=== PATIENT | female | born 1970 | race American Indian/Alaskan Native ===

== ENCOUNTER 2022-06-07 16:42 | Inpatient (IN) | payer MEDICARE ==
[2022-06-08] MEDS: traZODone 50 MG TAB PO SCH ×2 (02:15→21:26)
[2022-06-08 06:55] LABS: Hematocrit 37.3 % (30.3-42.9); Hemoglobin 12.7 gm/dl (10.1-14.3); Mean Corpuscular HGB Conc 34 % (30-34); Mean Corpuscular Volume 91 fl (79-97); Platelet Count 254 K/mm3 (140-440); Red Blood Count 4.09 M/mm3 (3.65-5.03); Red Cell Distribution Width 14.5 % (13.2-15.2)
[2022-06-08 07:16] LABS: Alanine Aminotransferase 20 units/L (7-56); Albumin 3.8 g/dL (3.9-5); Blood Urea Nitrogen 10 mg/dL (7-17); Calcium 9.3 mg/dL (8.4-10.2); Chol/HDL Ratio 2.36 %; HDL Cholesterol 73 mg/dL (40-59); Hemolysis Index 3; LDL Cholesterol,Direct 92 mg/dL (50-130)
[2022-06-08 07:18] LABS: BUN/Creatinine Ratio 17
[2022-06-08 07:47] LABS: Total Cells Counted 100
[2022-06-08 07:50] LABS: Hypochromasia Few; Large Platelets Rare; Platelet Estimate Consistent w Auto
[2022-06-08 11:52] LABS: Mucus,Urine FEW /HPF
[2022-06-08 11:53] LABS: Color,Urine Straw (Yellow)
[2022-06-08 11:54] LABS: Bilirubin,Urine Negative (Negative); Blood,Urine Trace (Negative)
[2022-06-08 11:55] LABS: Protein,Urine <15 mg/dL mg/dL (Negative); Urobilinogen,Urine < 2.0 mg/dL (<2.0)
[2022-06-08] MEDS: NICOTINE 21 MG/24 HR PATCH TD SCH (17:43)
[2022-06-09] MEDS: NICOTINE 21 MG/24 HR PATCH TD SCH (09:28)
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
--- NOTE | 2022-06-09 14:32 | Consultation ---
History of Present Illness - Reason for Consult Consult date: 06/09/22 Medical consult and management Requesting physician: DANO MORAN - History of Present Illness 52-year-old female patient was admitted to [facility] facility with history of consistent with danger to self, severe anxiety and depression, hospitalist service was consulted for medical management Patient has history of breast cancer status post surgery and gastroesophageal reflux disease on GERD Patient also has history of vertigo, on meclizine This morning patient feels better in the day room No complaints, denies any chest pain or shortness of breath, denies any headache or dizziness, patient reports that she had right breast cancer status postsurgery Admitted for further evaluation management of danger to self with severe anxiety and depression Past History Past Medical History: GERD, other (Anxiety disorder. Depression, vertigo) Past Surgical History: Other (Right breast cancer status post right mastectomy) Social history: single, smoking Medications and Allergies Allergies Allergy/AdvReac Type Severity Reaction Status Date / Time No Known Allergies Allergy Unverified 06/07/22 18:05 Home Medications Medication Instructions Recorded Confirmed Last Taken Type Docusate Sodium [Colace CAP] 100 mg PO PRN 06/07/22 06/07/22 Unknown History Letrozole (Nf) [Femara (Nf)] 2.5 mg PO QDAY 06/07/22 06/07/22 Unknown History Meclizine [Antivert] 25 mg PO DAILY 06/07/22 06/07/22 Unknown History Venlafaxine [Effexor] 75 mg PO QHS 06/07/22 06/07/22 Unknown History Omeprazole 20 mg PO QAM 06/08/22 06/08/22 Unknown History Active Meds: Active Medications Nicotine (Nicotine 21 Mg/24 Hr Patch) 21 mg TD QDAY [facility] Last Admin: 06/09/22 09:28 Dose: 21 mg Trazodone HCl (Trazodone 50 Mg Tab) 50 mg PO QHS [facility] Last Admin: 06/08/22 21: Dose: 50 mg Review of Systems Constitutional: fatigue, weakness, no weight loss, no weight gain, no fever, no chills Ears, nose, mouth and throat: no nasal congestion, no nasal discharge Cardiovascular: no chest pain, no orthopnea, no palpitations Respiratory: no cough, no hemoptysis Gastrointestinal: no abdominal pain, no nausea, no vomiting, no diarrhea Genitourinary Female: no flank pain, no dysuria Musculoskeletal: myalgias, no arthritis Integumentary: no rash, no lesions Neurological: no tingling, no seizures, no syncope Psychiatric: anxiety, depression Endocrine: no cold intolerance, no heat intolerance, no polyphagia, no poly dipsia Hematologic/Lymphatic: no easy bruising, no easy bleeding Allergic/Immunologic: no urticaria, no allergic rhinitis Exam - Constitutional Vitals: Temp Pulse Resp BP Pulse Ox 98.4 F 71 18 130/90 98 06/08/22 19:35 06/08/22 22:00 06/08/22 22:00 06/08/22 22:00 06/08/22 22:00 General appearance: Present: no acute distress, well-nourished - EENT Eyes: Present: PERRL, EOM intact - Neck Neck: Present: supple, normal ROM - Respiratory Respiratory effort: normal Respiratory: bilateral: diminished, negative: rales, rhonchi, wheezing - Cardiovascular Rhythm: regular Heart Sounds: Present: S1 & S2 - Extremities Extremities: no ischemia, No edema - Abdominal General gastrointestinal: Present: soft, non-tender, non-distended, normal bowel sounds - Integumentary Integumentary: Present: clear, warm - Musculoskeletal Musculoskeletal: strength equal bilaterally, generalized weakness - Psychiatric Psychiatric: appropriate mood/affect, cooperative - Neurologic Neurologic: moves all extremities Results - Labs CBC & Chem 7: 06/08/22 06:36 06/08/22 06:36 Assessment and Plan -- Gastroesophageal reflux disease; Protonic and supportive care --History of vertigo; Fall precautions, meclizine as needed Physical therapy as indicated --Ongoing tobacco use; Smoking cessation counseling done Nicotine patch as needed -- Danger to self and severe anxiety and depression; Management per psych --History of breast cancer status postmastectomy Supportive care -DVT prophylaxis; SCDs while resting, ambulate as tolerated Closely monitor the patient and adjust management as needed Thank you for this consultation We will follow the patient along with you
[2022-06-09] MEDS ORDERED: DOCUSATE SODIUM 100 MG CAP PO PRN (20:00)
[2022-06-09] MEDS: traZODone 50 MG TAB PO SCH (21:14)
[2022-06-10] MEDS: NICOTINE 21 MG/24 HR PATCH TD SCH (10:25)
[2022-06-10] MEDS: MECLIZINE 25 MG TAB PO SCH (10:26)
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
--- NOTE | 2022-06-10 20:33 | Progress Note ---
Assessment and Plan Assessment and plan: -- Gastroesophageal reflux disease; Protonic and supportive care --History of vertigo; Fall precautions, meclizine as needed Physical therapy as indicated --Ongoing tobacco use; Smoking cessation counseling done Nicotine patch as needed -- Danger to self and severe anxiety and depression; Management per psych --History of breast cancer status postmastectomy Supportive care -DVT prophylaxis; SCDs while resting, ambulate as tolerated Closely monitor the patient and adjust management as needed Thank you for this consultation We will follow the patient along with you Continue current management Plan of care reviewed with the patient and her nurse Call us with questions We will follow the patient along with you History Interval history: I have seen and examined the patient at the bedside Patient's chart and medications reviewed No new events reported by the nursing staff Patient feels better Anxious to go home Vital signs noted Hospitalist Physical - Constitutional Vitals: Temp Pulse Resp BP Pulse Ox 97.3 F L 86 16 128/83 100 06/10/22 02:00 06/10/22 02:00 06/10/22 02:00 06/10/22 02:00 06/10/22 02:00 General appearance: Present: no acute distress, well-nourished - EENT Eyes: Present: PERRL, EOM intact - Neck Neck: Present: supple, normal ROM - Respiratory Respiratory effort: normal Respiratory: bilateral: diminished, negative: rales, rhonchi, wheezing - Cardiovascular Rhythm: regular Heart Sounds: Present: S1 & S2 - Extremities Extremities: no ischemia, No edema - Abdominal General gastrointestinal: soft, non-tender, non-distended, normal bowel sounds - Integumentary Integumentary: Present: clear, warm - Psychiatric Psychiatric: appropriate mood/affect, cooperative - Neurologic Neurologic: CNII-XII intact, moves all extremities Results - Labs CBC & Chem 7: 06/08/22 06:36 06/08/22 06:36 Labs: Laboratory Last Values WBC 4.4 K/mm3 (4.5-11.0) L 06/08/22 06:36 RBC 4.09 M/mm3 (3.65-5.03) 06/08/22 06:36 Hgb 12.7 gm/dl (10.1-14.3) 06/08/22 06:36 Hct 37.3 % (30.3-42.9) 06/08/22 06:36 MCV 91 fl (79-97) 06/08/22 06:36 MCH 31 pg (28-32) 06/08/22 06:36 MCHC 34 % (30-34) 06/08/22 06:36 RDW 14.5 % (13.2-15.2) 06/08/22 06:36 Plt Count 254 K/mm3 (140-440) 06/08/22 06:36 Lymph % (Auto) Electric Meter Repairer Apprentice 06/08/22 06:36 Add Manual Diff Complete 06/08/22 06:36 Total Counted 100 06/08/22 06:36 Seg Neutrophils % Electric Meter Repairer Apprentice 06/08/22 06:36 Seg Neuts % (Manual) 35.0 % (40.0-70.0) L 06/08/22 06:36 Band Neutrophils % 0 % 06/08/22 06:36 Lymphocytes % (Manual) 56.0 % (13.4-35.0) H 06/08/22 06:36 Reactive Lymphs % (Man) 0 % 06/08/22 06:36 Monocytes % (Manual) 3.0 % (0.0-7.3) 06/08/22 06:36 Eosinophils % (Manual) 3.0 % (0.0-4.3) 06/08/22 06:36 Basophils % (Manual) 3.0 % (0.0-1.8) H 06/08/22 06:36 Metamyelocytes % 0 % 06/08/22 06:36 Myelocytes % 0 % 06/08/22 06:36 Promyelocytes % 0 % 06/08/22 06:36 Blast Cells % 0 % 06/08/22 06:36 Nucleated RBC % Not Reportable 06/08/22 06:36 Seg Neutrophils # Man 1.5 K/mm3 (1.8-7.7) L 06/08/22 06:36 Band Neutrophils # 0.0 K/mm3 06/08/22 06:36 Lymphocytes # (Manual) 2.5 K/mm3 (1.2-5.4) 06/08/22 06:36 Abs React Lymphs (Man) 0.0 K/mm3 06/08/22 06:36 Monocytes # (Manual) 0.1 K/mm3 (0.0-0.8) 06/08/22 06:36 Eosinophils # (Manual) 0.1 K/mm3 (0.0-0.4) 06/08/22 06:36 Basophils # (Manual) 0.1 K/mm3 (0.0-0.1) 06/08/22 06:36 Metamyelocytes # 0.0 K/mm3 06/08/22 06:36 Myelocytes # 0.0 K/mm3 06/08/22 06:36 Promyelocytes # 0.0 K/mm3 06/08/22 06:36 Blast Cells # 0.0 K/mm3 06/08/22 06:36 WBC Morphology Not Reportable 06/08/22 06:36 Hypersegmented Neuts Not Reportable 06/08/22 06:36 Hyposegmented Neuts Not Reportable 06/08/22 06:36 Hypogranular Neuts Not Reportable 06/08/22 06:36 Smudge Cells Not Reportable 06/08/22 06:36 Toxic Granulation Not Reportable 06/08/22 06:36 Toxic Vacuolation Not Reportable 06/08/22 06:36 Dohle Bodies Not Reportable 06/08/22 06:36 Pelger-Huet Anomaly Not Reportable 06/08/22 06:36 Justine Rods Not Reportable 06/08/22 06:36 Platelet Estimate Consistent w auto 06/08/22 06:36 Clumped Platelets Not Reportable 06/08/22 06:36 Plt Clumps, EDTA Not Reportable 06/08/22 06:36 Large Platelets Rare 06/08/22 06:36 Giant Platelets Not Reportable 06/08/22 06:36 Platelet Satelliting Not Reportable 06/08/22 06:36 Plt Morphology Comment Not Reportable 06/08/22 06:36 RBC Morphology Not Reportable 06/08/22 06:36 Dimorphic RBCs Not Reportable 06/08/22 06:36 Polychromasia Not Reportable 06/08/22 06:36 Hypochromasia Few 06/08/22 06:36 Poikilocytosis Not Reportable 06/08/22 06:36 Anisocytosis Not Reportable 06/08/22 06:36 Microcytosis Not Reportable 06/08/22 06:36 Macrocytosis Not Reportable 06/08/22 06:36 Spherocytes Not Reportable 06/08/22 06:36 Pappenheimer Bodies Not Reportable 06/08/22 06:36 Sickle Cells Not Reportable 06/08/22 06:36 Target Cells Not Reportable 06/08/22 06:36 Tear Drop Cells Not Reportable 06/08/22 06:36 Ovalocytes Not Reportable 06/08/22 06:36 Helmet Cells Not Reportable 06/08/22 06:36 [place] Bodies Not Reportable 06/08/22 06:36 [place] Rings Not Reportable 06/08/22 06:36 [place] Cells Not Reportable 06/08/22 06:36 Bite Cells Not Reportable 06/08/22 06:36 Crenated Cell Not Reportable 06/08/22 06:36 Elliptocytes Not Reportable 06/08/22 06:36 Acanthocytes (Spur) Not Reportable 06/08/22 06:36 Rouleaux Not Reportable 06/08/22 06:36 Hemoglobin C Crystals Not Reportable 06/08/22 06:36 Schistocytes Not Reportable 06/08/22 06:36 Malaria parasites Not Reportable 06/08/22 06:36 Pk Bodies Not Reportable 06/08/22 06:36 Hem Pathologist Commnt No 06/08/22 06:36 Sodium 139 mmol/L (137-145) 06/08/22 06:36 Potassium 3.7 mmol/L (3.6-5.0) 06/08/22 06:36 Chloride 105.7 mmol/L (98-107) 06/08/22 06:36 Carbon Dioxide 27 mmol/L (22-30) 06/08/22 06:36 Anion Gap 10 mmol/L 06/08/22 06:36 BUN 10 mg/dL (7-17) 06/08/22 06:36 Creatinine 0.6 mg/dL (0.6-1.2) 06/08/22 06:36 Estimated GFR > 60 ml/min 06/08/22 06:36 BUN/Creatinine Ratio 17 % 06/08/22 06:36 Glucose 82 mg/dL (65-100) 06/08/22 06:36 POC Glucose 83 mg/dL (70-105) 06/08/22 07:11 Hemoglobin A1c 5.8 % (4-6) 06/08/22 06:36 Calcium 9.3 mg/dL (8.4-10.2) 06/08/22 06:36 Total Bilirubin 0.30 mg/dL (0.1-1.2) 06/08/22 06:36 AST 28 units/L (5-40) 06/08/22 06:36 ALT 20 units/L (7-56) 06/08/22 06:36 Alkaline Phosphatase 85 units/L (35-129) 06/08/22 06:36 Total Protein 6.8 g/dL (6.3-8.2) 06/08/22 06:36 Albumin 3.8 g/dL (3.9-5) L 06/08/22 06:36 Albumin/Globulin Ratio 1.3 % 06/08/22 06:36 Triglycerides 61 mg/dL (2-149) 06/08/22 06:36 Cholesterol 173 mg/dL (50-199) 06/08/22 06:36 LDL Cholesterol Direct 92 mg/dL (50-130) 06/08/22 06:36 HDL Cholesterol 73 mg/dL (40-59) H 06/08/22 06:36 Cholesterol/HDL Ratio 2.36 % 06/08/22 06:36 TSH 1.350 mlU/mL (0.270-4.200) 06/08/22 06:36 Urine Color Straw (Yellow) 06/08/22 10:30 Urine Turbidity Clear (Clear) 06/08/22 10:30 Urine pH 7.0 (5.0-7.0) 06/08/22 10:30 Ur Specific [place] 1.010 (1.003-1.030) 06/08/22 10:30 Urine Protein <15 mg/dl mg/dL (Negative) 06/08/22 10:30 Urine Glucose (UA) Negative mg/dL (Negative) 06/08/22 10:30 Urine Ketones Negative mg/dL (Negative) 06/08/22 10:30 Urine Blood Trace (Negative) 06/08/22 10:30 Urine Nitrite Negative (Negative) 06/08/22 10:30 Ur Reducing Substances Not Reportable 06/08/22 10:30 Urine Bilirubin Negative (Negative) 06/08/22 10:30 Urine Ictotest Not Reportable 06/08/22 10:30 Urine Urobilinogen < 2.0 mg/dL (<2.0) 06/08/22 10:30 Ur Leukocyte Esterase Negative (Negative) 06/08/22 10:30 Urine WBC (Auto) 1.0 /HPF (0.0-6.0) 06/08/22 10:30 Urine RBC (Auto) 1.0 /HPF (0.0-6.0) 06/08/22 10:30 U Epithel Cells (Auto) 4.0 /HPF (0-13.0) 06/08/22 10:30 Urine Mucus Few /HPF 06/08/22 10:30 Carlos/IV: Voiding Method Toilet Active Medications - Current Medications Current Medications: Generic Name Dose Route Start Last Admin Trade Name Freq PRN Reason Stop Dose Admin Docusate Sodium 100 mg 06/09/22 20:00 Docusate Sodium 100 Mg Cap PO BID PRN Constipation Meclizine HCl 25 mg 06/10/22 10:00 06/10/22 10:26 Meclizine 25 Mg Tab PO 25 mg DAILY KEVIN Administration Nicotine 21 mg 06/08/22 17:00 06/10/22 10:25 Nicotine 21 Mg/24 Hr Patch TD 21 mg QDAY KEVIN Administration Sertraline HCl 25 mg 06/10/22 14:00 Sertraline 25 Mg Tab PO QDAY KEVIN Trazodone HCl 50 mg 06/08/22 01:30 06/09/22 21:14 Trazodone 50 Mg Tab PO 50 mg QHS KEVIN Administration
[2022-06-10] MEDS: traZODone 50 MG TAB PO SCH (21:43)
--- NOTE | 2022-06-11 08:42 | Progress Note ---
Subjective Date of service: 06/11/22 Principal diagnosis: schizophrenia Subjective Comment: The patient says she's doing pretty good. She says she slept well. The patient denies SI/HI or hallucinations. REVIEW OF SYSTEMS Constitutional: Negative for weight loss ENT: Negative for stridor Respiratory: Negative for cough or hemoptysis All other systems reviewed and are negative MENTAL STATUS EXAMINATION General Appearance and Behavior: Age appropriate, wearing appropriate clothes, cooperative, polite with questioning, good eye contact Cooperation: cooperative Psychomotor Behavior: Psychomotor normal Mood: depressed Affect and affective range: congruent with stated affect Thought Process: Goal directed Thought Content: hopelessness Speech: Normal volume, Regular rate and rhythm Suicidal Ideation: Denies Homicidal Ideation: Denies Hallucination: Denies Delusions:None Impulse Control: Limited Insight and Judgment: Limited Memory: Intact Attention:attentive Orientation: Alert and oriented Diagnoses: Schizophrenia Treatment Plan Patient will be admitted for inpatient psychiatric evaluation, medication adjustment and close monitoring The patient's behavior, mood, sleep and appetite will be closely monitored. Patient will be enrolled in individual and group therapeutic sessions and encouraged to attend. Patient will be provided with a safe and structured environment. Patient's physical health needs will be addressed by the Hospitalist. Hospitalist Consulted Labs including CBC, CMP, Lipid profile and Hemoglobin A1C ordered Social Assessment will be completed and the Purchasing Director will work with patient and family to ensure a suitable and safe disposition Medication adjustment will be made as clinically indicated Continue Zoloft 25mg po daily No changes made today Usual Wellness Restorationist/Preservation: - Start Trazodone 50 mg po QHS The patient agreed on the treatment plan, understood the risk, benefit, alternative treatment, potential consequence of no treatment, and gave informed consent. LOS 7 days Case staffed with Dr. Inman Medications and Allergies Allergies Allergy/AdvReac Type Severity Reaction Status Date / Time No Known Allergies Allergy Unverified 06/07/22 18:05 Home Medications Medication Instructions Recorded Confirmed Last Taken Type Docusate Sodium [Colace CAP] 100 mg PO PRN 06/07/22 06/07/22 Unknown History Letrozole (Nf) [Femara (Nf)] 2.5 mg PO QDAY 06/07/22 06/07/22 Unknown History Meclizine [Antivert] 25 mg PO DAILY 06/07/22 06/07/22 Unknown History Venlafaxine [Effexor] 75 mg PO QHS 06/07/22 06/07/22 Unknown History Omeprazole 20 mg PO QAM 06/08/22 06/08/22 Unknown History Active Meds: Active Medications Docusate Sodium (Docusate Sodium 100 Mg Cap) 100 mg PO BID PRN PRN Reason: Constipation Meclizine HCl (Meclizine 25 Mg Tab) 25 mg PO DAILY [facility] Last Admin: 06/10/22 10:26 Dose: 25 mg Nicotine (Nicotine 21 Mg/24 Hr Patch) 21 mg TD QDAY [facility] Last Admin: 06/10/22 10:25 Dose: 21 mg Sertraline HCl (Sertraline 25 Mg Tab) 25 mg PO QDAY [facility] Trazodone HCl (Trazodone 50 Mg Tab) 50 mg PO QHS [facility] Last Admin: 06/10/22 21:43 Dose: 50 mg Results - Results Labs/Vitals: Laboratory Last Values WBC 4.4 K/mm3 (4.5-11.0) L 06/08/22 06:36 RBC 4.09 M/mm3 (3.65-5.03) 06/08/22 06:36 Hgb 12.7 gm/dl (10.1-14.3) 06/08/22 06:36 Hct 37.3 % (30.3-42.9) 06/08/22 06:36 MCV 91 fl (79-97) 06/08/22 06:36 MCH 31 pg (28-32) 06/08/22 06:36 MCHC 34 % (30-34) 06/08/22 06:36 RDW 14.5 % (13.2-15.2) 06/08/22 06:36 Plt Count 254 K/mm3 (140-440) 06/08/22 06:36 Lymph % (Auto) Distillery Supervisor 06/08/22 06:36 Add Manual Diff Complete 06/08/22 06:36 Total Counted 100 06/08/22 06:36 Seg Neutrophils % Distillery Supervisor 06/08/22 06:36 Seg Neuts % (Manual) 35.0 % (40.0-70.0) L 06/08/22 06:36 Band Neutrophils % 0 % 06/08/22 06:36 Lymphocytes % (Manual) 56.0 % (13.4-35.0) H 06/08/22 06:36 Reactive Lymphs % (Man) 0 % 06/08/22 06:36 Monocytes % (Manual) 3.0 % (0.0-7.3) 06/08/22 06:36 Eosinophils % (Manual) 3.0 % (0.0-4.3) 06/08/22 06:36 Basophils % (Manual) 3.0 % (0.0-1.8) H 06/08/22 06:36 Metamyelocytes % 0 % 06/08/22 06:36 Myelocytes % 0 % 06/08/22 06:36 Promyelocytes % 0 % 06/08/22 06:36 Blast Cells % 0 % 06/08/22 06:36 Nucleated RBC % Not Reportable 06/08/22 06:36 Seg Neutrophils # Man 1.5 K/mm3 (1.8-7.7) L 06/08/22 06:36 Band Neutrophils # 0.0 K/mm3 06/08/22 06:36 Lymphocytes # (Manual) 2.5 K/mm3 (1.2-5.4) 06/08/22 06:36 Abs React Lymphs (Man) 0.0 K/mm3 06/08/22 06:36 Monocytes # (Manual) 0.1 K/mm3 (0.0-0.8) 06/08/22 06:36 Eosinophils # (Manual) 0.1 K/mm3 (0.0-0.4) 06/08/22 06:36 Basophils # (Manual) 0.1 K/mm3 (0.0-0.1) 06/08/22 06:36 Metamyelocytes # 0.0 K/mm3 06/08/22 06:36 Myelocytes # 0.0 K/mm3 06/08/22 06:36 Promyelocytes # 0.0 K/mm3 06/08/22 06:36 Blast Cells # 0.0 K/mm3 06/08/22 06:36 WBC Morphology Not Reportable 06/08/22 06:36 Hypersegmented Neuts Not Reportable 06/08/22 06:36 Hyposegmented Neuts Not Reportable 06/08/22 06:36 Hypogranular Neuts Not Reportable 06/08/22 06:36 Smudge Cells Not Reportable 06/08/22 06:36 Toxic Granulation Not Reportable 06/08/22 06:36 Toxic Vacuolation Not Reportable 06/08/22 06:36 Dohle Bodies Not Reportable 06/08/22 06:36 Pelger-Huet Anomaly Not Reportable 06/08/22 06:36 Justine Rods Not Reportable 06/08/22 06:36 Platelet Estimate Consistent w auto 06/08/22 06:36 Clumped Platelets Not Reportable 06/08/22 06:36 Plt Clumps, EDTA Not Reportable 06/08/22 06:36 Large Platelets Rare 06/08/22 06:36 Giant Platelets Not Reportable 06/08/22 06:36 Platelet Satelliting Not Reportable 06/08/22 06:36 Plt Morphology Comment Not Reportable 06/08/22 06:36 RBC Morphology Not Reportable 06/08/22 06:36 Dimorphic RBCs Not Reportable 06/08/22 06:36 Polychromasia Not Reportable 06/08/22 06:36 Hypochromasia Few 06/08/22 06:36 Poikilocytosis Not Reportable 06/08/22 06:36 Anisocytosis Not Reportable 06/08/22 06:36 Microcytosis Not Reportable 06/08/22 06:36 Macrocytosis Not Reportable 06/08/22 06:36 Spherocytes Not Reportable 06/08/22 06:36 Pappenheimer Bodies Not Reportable 06/08/22 06:36 Sickle Cells Not Reportable 06/08/22 06:36 Target Cells Not Reportable 06/08/22 06:36 Tear Drop Cells Not Reportable 06/08/22 06:36 Ovalocytes Not Reportable 06/08/22 06:36 Helmet Cells Not Reportable 06/08/22 06:36 [place] Bodies Not Reportable 06/08/22 06:36 [place] Rings Not Reportable 06/08/22 06:36 [place] Cells Not Reportable 06/08/22 06:36 Bite Cells Not Reportable 06/08/22 06:36 Crenated Cell Not Reportable 06/08/22 06:36 Elliptocytes Not Reportable 06/08/22 06:36 Acanthocytes (Spur) Not Reportable 06/08/22 06:36 Rouleaux Not Reportable 06/08/22 06:36 Hemoglobin C Crystals Not Reportable 06/08/22 06:36 Schistocytes Not Reportable 06/08/22 06:36 Malaria parasites Not Reportable 06/08/22 06:36 Pk Bodies Not Reportable 06/08/22 06:36 Hem Pathologist Commnt No 06/08/22 06:36 Sodium 139 mmol/L (137-145) 06/08/22 06:36 Potassium 3.7 mmol/L (3.6-5.0) 06/08/22 06:36 Chloride 105.7 mmol/L (98-107) 06/08/22 06:36 Carbon Dioxide 27 mmol/L (22-30) 06/08/22 06:36 Anion Gap 10 mmol/L 06/08/22 06:36 BUN 10 mg/dL (7-17) 06/08/22 06:36 Creatinine 0.6 mg/dL (0.6-1.2) 06/08/22 06:36 Estimated GFR > 60 ml/min 06/08/22 06:36 BUN/Creatinine Ratio 17 % 06/08/22 06:36 Glucose 82 mg/dL (65-100) 06/08/22 06:36 POC Glucose 83 mg/dL (70-105) 06/08/22 07:11 Hemoglobin A1c 5.8 % (4-6) 06/08/22 06:36 Calcium 9.3 mg/dL (8.4-10.2) 06/08/22 06:36 Total Bilirubin 0.30 mg/dL (0.1-1.2) 06/08/22 06:36 AST 28 units/L (5-40) 06/08/22 06:36 ALT 20 units/L (7-56) 06/08/22 06:36 Alkaline Phosphatase 85 units/L (35-129) 06/08/22 06:36 Total Protein 6.8 g/dL (6.3-8.2) 06/08/22 06:36 Albumin 3.8 g/dL (3.9-5) L 06/08/22 06:36 Albumin/Globulin Ratio 1.3 % 06/08/22 06:36 Triglycerides 61 mg/dL (2-149) 06/08/22 06:36 Cholesterol 173 mg/dL (50-199) 06/08/22 06:36 LDL Cholesterol Direct 92 mg/dL (50-130) 06/08/22 06:36 HDL Cholesterol 73 mg/dL (40-59) H 06/08/22 06:36 Cholesterol/HDL Ratio 2.36 % 06/08/22 06:36 TSH 1.350 mlU/mL (0.270-4.200) 06/08/22 06:36 Urine Color Straw (Yellow) 06/08/22 10:30 Urine Turbidity Clear (Clear) 06/08/22 10:30 Urine pH 7.0 (5.0-7.0) 06/08/22 10:30 Ur Specific [place] 1.010 (1.003-1.030) 06/08/22 10:30 Urine Protein <15 mg/dl mg/dL (Negative) 06/08/22 10:30 Urine Glucose (UA) Negative mg/dL (Negative) 06/08/22 10:30 Urine Ketones Negative mg/dL (Negative) 06/08/22 10:30 Urine Blood Trace (Negative) 06/08/22 10:30 Urine Nitrite Negative (Negative) 06/08/22 10:30 Ur Reducing Substances Not Reportable 06/08/22 10:30 Urine Bilirubin Negative (Negative) 06/08/22 10:30 Urine Ictotest Not Reportable 06/08/22 10:30 Urine Urobilinogen < 2.0 mg/dL (<2.0) 06/08/22 10:30 Ur Leukocyte Esterase Negative (Negative) 06/08/22 10:30 Urine WBC (Auto) 1.0 /HPF (0.0-6.0) 06/08/22 10:30 Urine RBC (Auto) 1.0 /HPF (0.0-6.0) 06/08/22 10:30 U Epithel Cells (Auto) 4.0 /HPF (0-13.0) 06/08/22 10:30 Urine Mucus Few /HPF 06/08/22 10:30 Last Vital Signs Temp 97.6 F 06/10/22 20:00 Pulse 79 06/10/22 20:00 Resp 16 06/10/22 20:00 BP 135/94 06/10/22 20:00 Pulse Ox 99 06/10/22 20:00
[2022-06-11] MEDS: MECLIZINE 25 MG TAB PO SCH (10:10)
[2022-06-11] MEDS: NICOTINE 21 MG/24 HR PATCH TD SCH (10:11)
[2022-06-11] MEDS: SERTRALINE 25 MG TAB PO SCH ×2 (10:11→20:31)
--- NOTE | 2022-06-11 19:50 | Progress Note ---
Assessment and Plan Assessment and plan: -- Gastroesophageal reflux disease; Protonic and supportive care --History of vertigo; Fall precautions, meclizine as needed Physical therapy as indicated --Ongoing tobacco use; Smoking cessation counseling done Nicotine patch as needed -- Danger to self and severe anxiety and depression; Management per psych --History of breast cancer status postmastectomy Supportive care -DVT prophylaxis; SCDs while resting, ambulate as tolerated Closely monitor the patient and adjust management as needed Thank you for this consultation We will follow the patient along with you Continue current management Plan of care reviewed with the patient and her nurse Call us with questions We will follow the patient along with you History Interval history: I have seen and examined the patient in her room this morning Patient was reading the Bible, and continues to talk latter day and spiritual matters Patient is not in acute distress Reports to me that she is not crazy No new complaints Wants to go home Vital signs noted vital signs noted Hospitalist Physical - Constitutional Vitals: Temp Pulse Resp BP Pulse Ox 97.5 F L 61 16 142/80 100 06/11/22 14:36 06/11/22 14:36 06/11/22 14:36 06/11/22 14:36 06/11/22 14:36 General appearance: Present: no acute distress, well-nourished - EENT Eyes: Present: PERRL, EOM intact - Neck Neck: Present: supple, normal ROM - Respiratory Respiratory effort: normal Respiratory: bilateral: diminished, negative: rales, rhonchi, wheezing - Cardiovascular Rhythm: regular Heart Sounds: Present: S1 & S2 - Extremities Extremities: no ischemia, No edema - Abdominal General gastrointestinal: soft, non-tender, non-distended, normal bowel sounds - Integumentary Integumentary: Present: clear, warm - Psychiatric Psychiatric: appropriate mood/affect, agitated - Neurologic Neurologic: moves all extremities Results - Labs CBC & Chem 7: 06/08/22 06:36 06/08/22 06:36 Labs: Laboratory Last Values WBC 4.4 K/mm3 (4.5-11.0) L 06/08/22 06:36 RBC 4.09 M/mm3 (3.65-5.03) 06/08/22 06:36 Hgb 12.7 gm/dl (10.1-14.3) 06/08/22 06:36 Hct 37.3 % (30.3-42.9) 06/08/22 06:36 MCV 91 fl (79-97) 06/08/22 06:36 MCH 31 pg (28-32) 06/08/22 06:36 MCHC 34 % (30-34) 06/08/22 06:36 RDW 14.5 % (13.2-15.2) 06/08/22 06:36 Plt Count 254 K/mm3 (140-440) 06/08/22 06:36 Lymph % (Auto) Glaze Carrier 06/08/22 06:36 Add Manual Diff Complete 06/08/22 06:36 Total Counted 100 06/08/22 06:36 Seg Neutrophils % Glaze Carrier 06/08/22 06:36 Seg Neuts % (Manual) 35.0 % (40.0-70.0) L 06/08/22 06:36 Band Neutrophils % 0 % 06/08/22 06:36 Lymphocytes % (Manual) 56.0 % (13.4-35.0) H 06/08/22 06:36 Reactive Lymphs % (Man) 0 % 06/08/22 06:36 Monocytes % (Manual) 3.0 % (0.0-7.3) 06/08/22 06:36 Eosinophils % (Manual) 3.0 % (0.0-4.3) 06/08/22 06:36 Basophils % (Manual) 3.0 % (0.0-1.8) H 06/08/22 06:36 Metamyelocytes % 0 % 06/08/22 06:36 Myelocytes % 0 % 06/08/22 06:36 Promyelocytes % 0 % 06/08/22 06:36 Blast Cells % 0 % 06/08/22 06:36 Nucleated RBC % Not Reportable 06/08/22 06:36 Seg Neutrophils # Man 1.5 K/mm3 (1.8-7.7) L 06/08/22 06:36 Band Neutrophils # 0.0 K/mm3 06/08/22 06:36 Lymphocytes # (Manual) 2.5 K/mm3 (1.2-5.4) 06/08/22 06:36 Abs React Lymphs (Man) 0.0 K/mm3 06/08/22 06:36 Monocytes # (Manual) 0.1 K/mm3 (0.0-0.8) 06/08/22 06:36 Eosinophils # (Manual) 0.1 K/mm3 (0.0-0.4) 06/08/22 06:36 Basophils # (Manual) 0.1 K/mm3 (0.0-0.1) 06/08/22 06:36 Metamyelocytes # 0.0 K/mm3 06/08/22 06:36 Myelocytes # 0.0 K/mm3 06/08/22 06:36 Promyelocytes # 0.0 K/mm3 06/08/22 06:36 Blast Cells # 0.0 K/mm3 06/08/22 06:36 WBC Morphology Not Reportable 06/08/22 06:36 Hypersegmented Neuts Not Reportable 06/08/22 06:36 Hyposegmented Neuts Not Reportable 06/08/22 06:36 Hypogranular Neuts Not Reportable 06/08/22 06:36 Smudge Cells Not Reportable 06/08/22 06:36 Toxic Granulation Not Reportable 06/08/22 06:36 Toxic Vacuolation Not Reportable 06/08/22 06:36 Dohle Bodies Not Reportable 06/08/22 06:36 Pelger-Huet Anomaly Not Reportable 06/08/22 06:36 Justine Rods Not Reportable 06/08/22 06:36 Platelet Estimate Consistent w auto 06/08/22 06:36 Clumped Platelets Not Reportable 06/08/22 06:36 Plt Clumps, EDTA Not Reportable 06/08/22 06:36 Large Platelets Rare 06/08/22 06:36 Giant Platelets Not Reportable 06/08/22 06:36 Platelet Satelliting Not Reportable 06/08/22 06:36 Plt Morphology Comment Not Reportable 06/08/22 06:36 RBC Morphology Not Reportable 06/08/22 06:36 Dimorphic RBCs Not Reportable 06/08/22 06:36 Polychromasia Not Reportable 06/08/22 06:36 Hypochromasia Few 06/08/22 06:36 Poikilocytosis Not Reportable 06/08/22 06:36 Anisocytosis Not Reportable 06/08/22 06:36 Microcytosis Not Reportable 06/08/22 06:36 Macrocytosis Not Reportable 06/08/22 06:36 Spherocytes Not Reportable 06/08/22 06:36 Pappenheimer Bodies Not Reportable 06/08/22 06:36 Sickle Cells Not Reportable 06/08/22 06:36 Target Cells Not Reportable 06/08/22 06:36 Tear Drop Cells Not Reportable 06/08/22 06:36 Ovalocytes Not Reportable 06/08/22 06:36 Helmet Cells Not Reportable 06/08/22 06:[address] [place] Bodies Not Reportable 06/08/22 06:36 [place] Rings Not Reportable 06/08/22 06:36 [place] Cells Not Reportable 06/08/22 06:36 Bite Cells Not Reportable 06/08/22 06:36 Crenated Cell Not Reportable 06/08/22 06:36 Elliptocytes Not Reportable 06/08/22 06:36 Acanthocytes (Spur) Not Reportable 06/08/22 06:36 Rouleaux Not Reportable 06/08/22 06:36 Hemoglobin C Crystals Not Reportable 06/08/22 06:36 Schistocytes Not Reportable 06/08/22 06:36 Malaria parasites Not Reportable 06/08/22 06:36 Pk Bodies Not Reportable 06/08/22 06:36 Hem Pathologist Commnt No 06/08/22 06:36 Sodium 139 mmol/L (137-145) 06/08/22 06:36 Potassium 3.7 mmol/L (3.6-5.0) 06/08/22 06:36 Chloride 105.7 mmol/L (98-107) 06/08/22 06:36 Carbon Dioxide 27 mmol/L (22-30) 06/08/22 06:36 Anion Gap 10 mmol/L 06/08/22 06:36 BUN 10 mg/dL (7-17) 06/08/22 06:36 Creatinine 0.6 mg/dL (0.6-1.2) 06/08/22 06:36 Estimated GFR > 60 ml/min 06/08/22 06:36 BUN/Creatinine Ratio 17 % 06/08/22 06:36 Glucose 82 mg/dL (65-100) 06/08/22 06:36 POC Glucose 83 mg/dL (70-105) 06/08/22 07:11 Hemoglobin A1c 5.8 % (4-6) 06/08/22 06:36 Calcium 9.3 mg/dL (8.4-10.2) 06/08/22 06:36 Total Bilirubin 0.30 mg/dL (0.1-1.2) 06/08/22 06:36 AST 28 units/L (5-40) 06/08/22 06:36 ALT 20 units/L (7-56) 06/08/22 06:36 Alkaline Phosphatase 85 units/L (35-129) 06/08/22 06:36 Total Protein 6.8 g/dL (6.3-8.2) 06/08/22 06:36 Albumin 3.8 g/dL (3.9-5) L 06/08/22 06:36 Albumin/Globulin Ratio 1.3 % 06/08/22 06:36 Triglycerides 61 mg/dL (2-149) 06/08/22 06:36 Cholesterol 173 mg/dL (50-199) 06/08/22 06:36 LDL Cholesterol Direct 92 mg/dL (50-130) 06/08/22 06:36 HDL Cholesterol 73 mg/dL (40-59) H 06/08/22 06:36 Cholesterol/HDL Ratio 2.36 % 06/08/22 06:36 TSH 1.350 mlU/mL (0.270-4.200) 06/08/22 06:36 Urine Color Straw (Yellow) 06/08/22 10:30 Urine Turbidity Clear (Clear) 06/08/22 10:30 Urine pH 7.0 (5.0-7.0) 06/08/22 10:30 Ur Specific [place] 1.010 (1.003-1.030) 06/08/22 10:30 Urine Protein <15 mg/dl mg/dL (Negative) 06/08/22 10:30 Urine Glucose (UA) Negative mg/dL (Negative) 06/08/22 10:30 Urine Ketones Negative mg/dL (Negative) 06/08/22 10:30 Urine Blood Trace (Negative) 06/08/22 10:30 Urine Nitrite Negative (Negative) 06/08/22 10:30 Ur Reducing Substances Not Reportable 06/08/22 10:30 Urine Bilirubin Negative (Negative) 06/08/22 10:30 Urine Ictotest Not Reportable 06/08/22 10:30 Urine Urobilinogen < 2.0 mg/dL (<2.0) 06/08/22 10:30 Ur Leukocyte Esterase Negative (Negative) 06/08/22 10:30 Urine WBC (Auto) 1.0 /HPF (0.0-6.0) 06/08/22 10:30 Urine RBC (Auto) 1.0 /HPF (0.0-6.0) 06/08/22 10:30 U Epithel Cells (Auto) 4.0 /HPF (0-13.0) 06/08/22 10:30 Urine Mucus Few /HPF 06/08/22 10:30 Carlos/IV: Voiding Method Toilet Active Medications - Current Medications Current Medications: Generic Name Dose Route Start Last Admin Trade Name Freq PRN Reason Stop Dose Admin Docusate Sodium 100 mg 06/09/22 20:00 Docusate Sodium 100 Mg Cap PO BID PRN Constipation Meclizine HCl 25 mg 06/10/22 10:00 06/11/22 10:10 Meclizine 25 Mg Tab PO 25 mg DAILY KEVIN Administration Nicotine 21 mg 06/08/22 17:00 06/11/22 10:11 Nicotine 21 Mg/24 Hr Patch TD 21 mg QDAY KEVIN Administration Sertraline HCl 25 mg 06/10/22 14:00 06/11/22 10:11 Sertraline 25 Mg Tab PO 25 mg QDAY KEVIN Administration Trazodone HCl 50 mg 06/08/22 01:30 06/10/22 21:43 Trazodone 50 Mg Tab PO 50 mg QHS KEVIN Administration
[2022-06-11] MEDS: traZODone 50 MG TAB PO SCH (21:01)
[2022-06-12] MEDS: MECLIZINE 25 MG TAB PO SCH (09:53)
[2022-06-12] MEDS: SERTRALINE 25 MG TAB PO SCH (09:53)
[2022-06-12] MEDS: NICOTINE 21 MG/24 HR PATCH TD SCH (09:53)
--- NOTE | 2022-06-12 10:13 | Progress Note ---
Subjective Date of service: 06/12/22 Principal diagnosis: schizophrenia Subjective Comment: The patient was seen today. She is sitting off to herself and appears irritated. She also appears down. She says she is herself from the group because they are annoying. She says people keep taking everything she says "and running with it." She denies SI/HI or hallucinations. REVIEW OF SYSTEMS Constitutional: Negative for weight loss ENT: Negative for stridor Respiratory: Negative for cough or hemoptysis All other systems reviewed and are negative MENTAL STATUS EXAMINATION General Appearance and Behavior: Age appropriate, wearing appropriate clothes, cooperative, polite with questioning, good eye contact Cooperation: cooperative Psychomotor Behavior: Psychomotor normal Mood: depressed Affect and affective range: congruent with stated affect Thought Process: Goal directed Thought Content: hopelessness Speech: Normal volume, Regular rate and rhythm Suicidal Ideation: Denies Homicidal Ideation: Denies Hallucination: Denies Delusions:None Impulse Control: Limited Insight and Judgment: Limited Memory: Intact Attention:attentive Orientation: Alert and oriented Diagnoses: Schizophrenia Treatment Plan Patient will be admitted for inpatient psychiatric evaluation, medication adjustment and close monitoring The patient's behavior, mood, sleep and appetite will be closely monitored. Patient will be enrolled in individual and group therapeutic sessions and encouraged to attend. Patient will be provided with a safe and structured environment. Patient's physical health needs will be addressed by the Hospitalist. Hospitalist Consulted Labs including CBC, CMP, Lipid profile and Hemoglobin A1C ordered Social Assessment will be completed and the Camera Repair Technician will work with patient and family to ensure a suitable and safe disposition Medication adjustment will be made as clinically indicated Increase Zoloft 50mg po daily Usual Wellness Denominational/Preservation: - Start Trazodone 50 mg po QHS The patient agreed on the treatment plan, understood the risk, benefit, alternative treatment, potential consequence of no treatment, and gave informed consent. LOS 7 days Case staffed with Dr. Inman Medications and Allergies Allergies Allergy/AdvReac Type Severity Reaction Status Date / Time No Known Allergies Allergy Unverified 06/07/22 18:05 Home Medications Medication Instructions Recorded Confirmed Last Taken Type Docusate Sodium [Colace CAP] 100 mg PO PRN 06/07/22 06/07/22 Unknown History Letrozole (Nf) [Femara (Nf)] 2.5 mg PO QDAY 06/07/22 06/07/22 Unknown History Meclizine [Antivert] 25 mg PO DAILY 06/07/22 06/07/22 Unknown History Venlafaxine [Effexor] 75 mg PO QHS 06/07/22 06/07/22 Unknown History Omeprazole 20 mg PO QAM 06/08/22 06/08/22 Unknown History Active Meds: Active Medications Docusate Sodium (Docusate Sodium 100 Mg Cap) 100 mg PO BID PRN PRN Reason: Constipation Meclizine HCl (Meclizine 25 Mg Tab) 25 mg PO DAILY [facility] Last Admin: 06/12/22 09:53 Dose: 25 mg Nicotine (Nicotine 21 Mg/24 Hr Patch) 21 mg TD QDAY [facility] Last Admin: 06/12/22 09:53 Dose: 21 mg Sertraline HCl (Sertraline 25 Mg Tab) 25 mg PO QDAY [facility] Last Admin: 06/12/22 09:53 Dose: 25 mg Trazodone HCl (Trazodone 50 Mg Tab) 50 mg PO QHS [facility] Last Admin: 06/11/22 21:01 Dose: 50 mg Results - Results Labs/Vitals: Laboratory Last Values WBC 4.4 K/mm3 (4.5-11.0) L 06/08/22 06:36 RBC 4.09 M/mm3 (3.65-5.03) 06/08/22 06:36 Hgb 12.7 gm/dl (10.1-14.3) 06/08/22 06:36 Hct 37.3 % (30.3-42.9) 06/08/22 06:36 MCV 91 fl (79-97) 06/08/22 06:36 MCH 31 pg (28-32) 06/08/22 06:36 MCHC 34 % (30-34) 06/08/22 06:36 RDW 14.5 % (13.2-15.2) 06/08/22 06:36 Plt Count 254 K/mm3 (140-440) 06/08/22 06:36 Lymph % (Auto) Grinding Machine Tender 06/08/22 06:36 Add Manual Diff Complete 06/08/22 06:36 Total Counted 100 06/08/22 06:36 Seg Neutrophils % Grinding Machine Tender 06/08/22 06:36 Seg Neuts % (Manual) 35.0 % (40.0-70.0) L 06/08/22 06:36 Band Neutrophils % 0 % 06/08/22 06:36 Lymphocytes % (Manual) 56.0 % (13.4-35.0) H 06/08/22 06:36 Reactive Lymphs % (Man) 0 % 06/08/22 06:36 Monocytes % (Manual) 3.0 % (0.0-7.3) 06/08/22 06:36 Eosinophils % (Manual) 3.0 % (0.0-4.3) 06/08/22 06:36 Basophils % (Manual) 3.0 % (0.0-1.8) H 06/08/22 06:36 Metamyelocytes % 0 % 06/08/22 06:36 Myelocytes % 0 % 06/08/22 06:36 Promyelocytes % 0 % 06/08/22 06:36 Blast Cells % 0 % 06/08/22 06:36 Nucleated RBC % Not Reportable 06/08/22 06:36 Seg Neutrophils # Man 1.5 K/mm3 (1.8-7.7) L 06/08/22 06:36 Band Neutrophils # 0.0 K/mm3 06/08/22 06:36 Lymphocytes # (Manual) 2.5 K/mm3 (1.2-5.4) 06/08/22 06:36 Abs React Lymphs (Man) 0.0 K/mm3 06/08/22 06:36 Monocytes # (Manual) 0.1 K/mm3 (0.0-0.8) 06/08/22 06:36 Eosinophils # (Manual) 0.1 K/mm3 (0.0-0.4) 06/08/22 06:36 Basophils # (Manual) 0.1 K/mm3 (0.0-0.1) 06/08/22 06:36 Metamyelocytes # 0.0 K/mm3 06/08/22 06:36 Myelocytes # 0.0 K/mm3 06/08/22 06:36 Promyelocytes # 0.0 K/mm3 06/08/22 06:36 Blast Cells # 0.0 K/mm3 06/08/22 06:36 WBC Morphology Not Reportable 06/08/22 06:36 Hypersegmented Neuts Not Reportable 06/08/22 06:36 Hyposegmented Neuts Not Reportable 06/08/22 06:36 Hypogranular Neuts Not Reportable 06/08/22 06:36 Smudge Cells Not Reportable 06/08/22 06:36 Toxic Granulation Not Reportable 06/08/22 06:36 Toxic Vacuolation Not Reportable 06/08/22 06:36 Dohle Bodies Not Reportable 06/08/22 06:36 Pelger-Huet Anomaly Not Reportable 06/08/22 06:36 Justine Rods Not Reportable 06/08/22 06:36 Platelet Estimate Consistent w auto 06/08/22 06:36 Clumped Platelets Not Reportable 06/08/22 06:36 Plt Clumps, EDTA Not Reportable 06/08/22 06:36 Large Platelets Rare 06/08/22 06:36 Giant Platelets Not Reportable 06/08/22 06:36 Platelet Satelliting Not Reportable 06/08/22 06:36 Plt Morphology Comment Not Reportable 06/08/22 06:36 RBC Morphology Not Reportable 06/08/22 06:36 Dimorphic RBCs Not Reportable 06/08/22 06:36 Polychromasia Not Reportable 06/08/22 06:36 Hypochromasia Few 06/08/22 06:36 Poikilocytosis Not Reportable 06/08/22 06:36 Anisocytosis Not Reportable 06/08/22 06:36 Microcytosis Not Reportable 06/08/22 06:36 Macrocytosis Not Reportable 06/08/22 06:36 Spherocytes Not Reportable 06/08/22 06:36 Pappenheimer Bodies Not Reportable 06/08/22 06:36 Sickle Cells Not Reportable 06/08/22 06:36 Target Cells Not Reportable 06/08/22 06:36 Tear Drop Cells Not Reportable 06/08/22 06:36 Ovalocytes Not Reportable 06/08/22 06:36 Helmet Cells Not Reportable 06/08/22 06:36 [place] Bodies Not Reportable 06/08/22 06:36 [place] Rings Not Reportable 06/08/22 06:36 [place] Cells Not Reportable 06/08/22 06:36 Bite Cells Not Reportable 06/08/22 06:36 Crenated Cell Not Reportable 06/08/22 06:36 Elliptocytes Not Reportable 06/08/22 06:36 Acanthocytes (Spur) Not Reportable 06/08/22 06:36 Rouleaux Not Reportable 06/08/22 06:36 Hemoglobin C Crystals Not Reportable 06/08/22 06:36 Schistocytes Not Reportable 06/08/22 06:36 Malaria parasites Not Reportable 06/08/22 06:36 Pk Bodies Not Reportable 06/08/22 06:36 Hem Pathologist Commnt No 06/08/22 06:36 Sodium 139 mmol/L (137-145) 06/08/22 06:36 Potassium 3.7 mmol/L (3.6-5.0) 06/08/22 06:36 Chloride 105.7 mmol/L (98-107) 06/08/22 06:36 Carbon Dioxide 27 mmol/L (22-30) 06/08/22 06:36 Anion Gap 10 mmol/L 06/08/22 06:36 BUN 10 mg/dL (7-17) 06/08/22 06:36 Creatinine 0.6 mg/dL (0.6-1.2) 06/08/22 06:36 Estimated GFR > 60 ml/min 06/08/22 06:36 BUN/Creatinine Ratio 17 % 06/08/22 06:36 Glucose 82 mg/dL (65-100) 06/08/22 06:36 POC Glucose 83 mg/dL (70-105) 06/08/22 07:11 Hemoglobin A1c 5.8 % (4-6) 06/08/22 06:36 Calcium 9.3 mg/dL (8.4-10.2) 06/08/22 06:36 Total Bilirubin 0.30 mg/dL (0.1-1.2) 06/08/22 06:36 AST 28 units/L (5-40) 06/08/22 06:36 ALT 20 units/L (7-56) 06/08/22 06:36 Alkaline Phosphatase 85 units/L (35-129) 06/08/22 06:36 Total Protein 6.8 g/dL (6.3-8.2) 06/08/22 06:36 Albumin 3.8 g/dL (3.9-5) L 06/08/22 06:36 Albumin/Globulin Ratio 1.3 % 06/08/22 06:36 Triglycerides 61 mg/dL (2-149) 06/08/22 06:36 Cholesterol 173 mg/dL (50-199) 06/08/22 06:36 LDL Cholesterol Direct 92 mg/dL (50-130) 06/08/22 06:36 HDL Cholesterol 73 mg/dL (40-59) H 06/08/22 06:36 Cholesterol/HDL Ratio 2.36 % 06/08/22 06:36 TSH 1.350 mlU/mL (0.270-4.200) 06/08/22 06:36 Urine Color Straw (Yellow) 06/08/22 10:30 Urine Turbidity Clear (Clear) 06/08/22 10:30 Urine pH 7.0 (5.0-7.0) 06/08/22 10:30 Ur Specific [place] 1.010 (1.003-1.030) 06/08/22 10:30 Urine Protein <15 mg/dl mg/dL (Negative) 06/08/22 10:30 Urine Glucose (UA) Negative mg/dL (Negative) 06/08/22 10:30 Urine Ketones Negative mg/dL (Negative) 06/08/22 10:30 Urine Blood Trace (Negative) 06/08/22 10:30 Urine Nitrite Negative (Negative) 06/08/22 10:30 Ur Reducing Substances Not Reportable 06/08/22 10:30 Urine Bilirubin Negative (Negative) 06/08/22 10:30 Urine Ictotest Not Reportable 06/08/22 10:30 Urine Urobilinogen < 2.0 mg/dL (<2.0) 06/08/22 10:30 Ur Leukocyte Esterase Negative (Negative) 06/08/22 10:30 Urine WBC (Auto) 1.0 /HPF (0.0-6.0) 06/08/22 10:30 Urine RBC (Auto) 1.0 /HPF (0.0-6.0) 06/08/22 10:30 U Epithel Cells (Auto) 4.0 /HPF (0-13.0) 06/08/22 10:30 Urine Mucus Few /HPF 06/08/22 10:30 Last Vital Signs Temp 98.6 F 06/11/22 19:25 Pulse 77 06/11/22 19:25 Resp 17 06/11/22 19:25 BP 155/98 06/11/22 19:25 Pulse Ox 100 06/11/22 19:25
--- NOTE | 2022-06-12 13:49 | Progress Note ---
Assessment and Plan Assessment and plan: -- Gastroesophageal reflux disease; Protonic and supportive care --History of vertigo; Fall precautions, meclizine as needed Physical therapy as indicated --Ongoing tobacco use; Smoking cessation counseling done Nicotine patch as needed -- Danger to self and severe anxiety and depression; Management per psych --History of breast cancer status postmastectomy Supportive care -DVT prophylaxis; SCDs while resting, ambulate as tolerated Closely monitor the patient and adjust management as needed Thank you for this consultation We will follow the patient along with you Continue current management Plan of care reviewed with the patient and her nurse Call us with questions We will follow the patient along with you History Interval history: I have seen and examined the patient in her room this afternoon Patient's chart and medications reviewed Patient is very calm and cheerful patient says she does not want to go to the day room Vital signs noted Hospitalist Physical - Constitutional Vitals: Temp Pulse Resp BP Pulse Ox 98.6 F 77 17 155/98 100 06/11/22 19:25 06/11/22 19:25 06/11/22 19:25 06/11/22 19:25 06/11/22 19:25 General appearance: Present: no acute distress, well-nourished - EENT Eyes: Present: PERRL, EOM intact - Neck Neck: Present: supple, normal ROM - Respiratory Respiratory effort: normal, labored Respiratory: bilateral: diminished, rhonchi, negative: rales, wheezing - Cardiovascular Rhythm: regular Heart Sounds: Present: S1 & S2 - Extremities Extremities: no ischemia, No edema - Abdominal General gastrointestinal: soft, non-tender, non-distended, normal bowel sounds - Integumentary Integumentary: Present: clear, warm - Psychiatric Psychiatric: appropriate mood/affect, cooperative - Neurologic Neurologic: moves all extremities Results - Labs CBC & Chem 7: 06/08/22 06:36 06/08/22 06:36 Labs: Laboratory Last Values WBC 4.4 K/mm3 (4.5-11.0) L 06/08/22 06:36 RBC 4.09 M/mm3 (3.65-5.03) 06/08/22 06:36 Hgb 12.7 gm/dl (10.1-14.3) 06/08/22 06:36 Hct 37.3 % (30.3-42.9) 06/08/22 06:36 MCV 91 fl (79-97) 06/08/22 06:36 MCH 31 pg (28-32) 06/08/22 06:36 MCHC 34 % (30-34) 06/08/22 06:36 RDW 14.5 % (13.2-15.2) 06/08/22 06:36 Plt Count 254 K/mm3 (140-440) 06/08/22 06:36 Lymph % (Auto) [employer] 06/08/22 06:36 Add Manual Diff Complete 06/08/22 06:36 Total Counted 100 06/08/22 06:36 Seg Neutrophils % [employer] 06/08/22 06:36 Seg Neuts % (Manual) 35.0 % (40.0-70.0) L 06/08/22 06:36 Band Neutrophils % 0 % 06/08/22 06:36 Lymphocytes % (Manual) 56.0 % (13.4-35.0) H 06/08/22 06:36 Reactive Lymphs % (Man) 0 % 06/08/22 06:36 Monocytes % (Manual) 3.0 % (0.0-7.3) 06/08/22 06:36 Eosinophils % (Manual) 3.0 % (0.0-4.3) 06/08/22 06:36 Basophils % (Manual) 3.0 % (0.0-1.8) H 06/08/22 06:36 Metamyelocytes % 0 % 06/08/22 06:36 Myelocytes % 0 % 06/08/22 06:36 Promyelocytes % 0 % 06/08/22 06:36 Blast Cells % 0 % 06/08/22 06:36 Nucleated RBC % Not Reportable 06/08/22 06:36 Seg Neutrophils # Man 1.5 K/mm3 (1.8-7.7) L 06/08/22 06:36 Band Neutrophils # 0.0 K/mm3 06/08/22 06:36 Lymphocytes # (Manual) 2.5 K/mm3 (1.2-5.4) 06/08/22 06:36 Abs React Lymphs (Man) 0.0 K/mm3 06/08/22 06:36 Monocytes # (Manual) 0.1 K/mm3 (0.0-0.8) 06/08/22 06:36 Eosinophils # (Manual) 0.1 K/mm3 (0.0-0.4) 06/08/22 06:36 Basophils # (Manual) 0.1 K/mm3 (0.0-0.1) 06/08/22 06:36 Metamyelocytes # 0.0 K/mm3 06/08/22 06:36 Myelocytes # 0.0 K/mm3 06/08/22 06:36 Promyelocytes # 0.0 K/mm3 06/08/22 06:36 Blast Cells # 0.0 K/mm3 06/08/22 06:36 WBC Morphology Not Reportable 06/08/22 06:36 Hypersegmented Neuts Not Reportable 06/08/22 06:36 Hyposegmented Neuts Not Reportable 06/08/22 06:36 Hypogranular Neuts Not Reportable 06/08/22 06:36 Smudge Cells Not Reportable 06/08/22 06:36 Toxic Granulation Not Reportable 06/08/22 06:36 Toxic Vacuolation Not Reportable 06/08/22 06:36 Dohle Bodies Not Reportable 06/08/22 06:36 Pelger-Huet Anomaly Not Reportable 06/08/22 06:36 Justine Rods Not Reportable 06/08/22 06:36 Platelet Estimate Consistent w auto 06/08/22 06:36 Clumped Platelets Not Reportable 06/08/22 06:36 Plt Clumps, EDTA Not Reportable 06/08/22 06:36 Large Platelets Rare 06/08/22 06:36 Giant Platelets Not Reportable 06/08/22 06:36 Platelet Satelliting Not Reportable 06/08/22 06:36 Plt Morphology Comment Not Reportable 06/08/22 06:36 RBC Morphology Not Reportable 06/08/22 06:36 Dimorphic RBCs Not Reportable 06/08/22 06:36 Polychromasia Not Reportable 06/08/22 06:36 Hypochromasia Few 06/08/22 06:36 Poikilocytosis Not Reportable 06/08/22 06:36 Anisocytosis Not Reportable 06/08/22 06:36 Microcytosis Not Reportable 06/08/22 06:36 Macrocytosis Not Reportable 06/08/22 06:36 Spherocytes Not Reportable 06/08/22 06:36 Pappenheimer Bodies Not Reportable 06/08/22 06:36 Sickle Cells Not Reportable 06/08/22 06:36 Target Cells Not Reportable 06/08/22 06:36 Tear Drop Cells Not Reportable 06/08/22 06:36 Ovalocytes Not Reportable 06/08/22 06:36 Helmet Cells Not Reportable 06/08/22 06:36 [place] Bodies Not Reportable 06/08/22 06:36 [place] Rings Not Reportable 06/08/22 06:36 [place] Cells Not Reportable 06/08/22 06:36 Bite Cells Not Reportable 06/08/22 06:36 Crenated Cell Not Reportable 06/08/22 06:36 Elliptocytes Not Reportable 06/08/22 06:36 Acanthocytes (Spur) Not Reportable 06/08/22 06:36 Rouleaux Not Reportable 06/08/22 06:36 Hemoglobin C Crystals Not Reportable 06/08/22 06:36 Schistocytes Not Reportable 06/08/22 06:36 Malaria parasites Not Reportable 06/08/22 06:36 Pk Bodies Not Reportable 06/08/22 06:36 Hem Pathologist Commnt No 06/08/22 06:36 Sodium 139 mmol/L (137-145) 06/08/22 06:36 Potassium 3.7 mmol/L (3.6-5.0) 06/08/22 06:36 Chloride 105.7 mmol/L (98-107) 06/08/22 06:36 Carbon Dioxide 27 mmol/L (22-30) 06/08/22 06:36 Anion Gap 10 mmol/L 06/08/22 06:36 BUN 10 mg/dL (7-17) 06/08/22 06:36 Creatinine 0.6 mg/dL (0.6-1.2) 06/08/22 06:36 Estimated GFR > 60 ml/min 06/08/22 06:36 BUN/Creatinine Ratio 17 % 06/08/22 06:36 Glucose 82 mg/dL (65-100) 06/08/22 06:36 POC Glucose 83 mg/dL (70-105) 06/08/22 07:11 Hemoglobin A1c 5.8 % (4-6) 06/08/22 06:36 Calcium 9.3 mg/dL (8.4-10.2) 06/08/22 06:36 Total Bilirubin 0.30 mg/dL (0.1-1.2) 06/08/22 06:36 AST 28 units/L (5-40) 06/08/22 06:36 ALT 20 units/L (7-56) 06/08/22 06:36 Alkaline Phosphatase 85 units/L (35-129) 06/08/22 06:36 Total Protein 6.8 g/dL (6.3-8.2) 06/08/22 06:36 Albumin 3.8 g/dL (3.9-5) L 06/08/22 06:36 Albumin/Globulin Ratio 1.3 % 06/08/22 06:36 Triglycerides 61 mg/dL (2-149) 06/08/22 06:36 Cholesterol 173 mg/dL (50-199) 06/08/22 06:36 LDL Cholesterol Direct 92 mg/dL (50-130) 06/08/22 06:36 HDL Cholesterol 73 mg/dL (40-59) H 06/08/22 06:36 Cholesterol/HDL Ratio 2.36 % 06/08/22 06:36 TSH 1.350 mlU/mL (0.270-4.200) 06/08/22 06:36 Urine Color Straw (Yellow) 06/08/22 10:30 Urine Turbidity Clear (Clear) 06/08/22 10:30 Urine pH 7.0 (5.0-7.0) 06/08/22 10:30 Ur Specific [place] 1.010 (1.003-1.030) 06/08/22 10:30 Urine Protein <15 mg/dl mg/dL (Negative) 06/08/22 10:30 Urine Glucose (UA) Negative mg/dL (Negative) 06/08/22 10:30 Urine Ketones Negative mg/dL (Negative) 06/08/22 10:30 Urine Blood Trace (Negative) 06/08/22 10:30 Urine Nitrite Negative (Negative) 06/08/22 10:30 Ur Reducing Substances Not Reportable 06/08/22 10:30 Urine Bilirubin Negative (Negative) 06/08/22 10:30 Urine Ictotest Not Reportable 06/08/22 10:30 Urine Urobilinogen < 2.0 mg/dL (<2.0) 06/08/22 10:30 Ur Leukocyte Esterase Negative (Negative) 06/08/22 10:30 Urine WBC (Auto) 1.0 /HPF (0.0-6.0) 06/08/22 10:30 Urine RBC (Auto) 1.0 /HPF (0.0-6.0) 06/08/22 10:30 U Epithel Cells (Auto) 4.0 /HPF (0-13.0) 06/08/22 10:30 Urine Mucus Few /HPF 06/08/22 10:30 Carlos/IV: Voiding Method Toilet Active Medications - Current Medications Current Medications: Generic Name Dose Route Start Last Admin Trade Name Freq PRN Reason Stop Dose Admin Docusate Sodium 100 mg 06/09/22 20:00 Docusate Sodium 100 Mg Cap PO BID PRN Constipation Meclizine HCl 25 mg 06/10/22 10:00 06/12/22 09:53 Meclizine 25 Mg Tab PO 25 mg DAILY KEVIN Administration Nicotine 21 mg 06/08/22 17:00 06/12/22 09:53 Nicotine 21 Mg/24 Hr Patch TD 21 mg QDAY KEVIN Administration Sertraline HCl 50 mg 06/13/22 10:00 Sertraline 50 Mg Tab PO QDAY KEVIN Trazodone HCl 50 mg 06/08/22 01:30 06/11/22 21:01 Trazodone 50 Mg Tab PO 50 mg QHS KEVIN Administration
[2022-06-12] MEDS ORDERED: ACETAMINOPHEN 325 MG TAB PO PRN (15:35)
[2022-06-12] MEDS: traZODone 50 MG TAB PO SCH (21:05)
[2022-06-13] MEDS: NICOTINE 21 MG/24 HR PATCH TD SCH (09:45)
[2022-06-13] MEDS: SERTRALINE 50 MG TAB PO SCH (09:45)
[2022-06-13] MEDS: MECLIZINE 25 MG TAB PO SCH (09:45)
--- NOTE | 2022-06-13 11:50 | Progress Note ---
Subjective Date of service: 06/13/22 Principal diagnosis: schizophrenia Subjective Comment: The patient was seen today. She is in a better mood today. She says she is feeling pretty good. She denies SI/HI or hallucinations of any kind. Attempted to speak with the patient's family. Did not get an answer. The patient is clear from psych and can discharge once outpatient resources are in place. REVIEW OF SYSTEMS Constitutional: Negative for weight loss ENT: Negative for stridor Respiratory: Negative for cough or hemoptysis All other systems reviewed and are negative MENTAL STATUS EXAMINATION General Appearance and Behavior: Age appropriate, wearing appropriate clothes, cooperative, polite with questioning, good eye contact Cooperation: cooperative Psychomotor Behavior: Psychomotor normal Mood: depressed Affect and affective range: congruent with stated affect Thought Process: Goal directed Thought Content: hopelessness Speech: Normal volume, Regular rate and rhythm Suicidal Ideation: Denies Homicidal Ideation: Denies Hallucination: Denies Delusions:None Impulse Control: Limited Insight and Judgment: Limited Memory: Intact Attention:attentive Orientation: Alert and oriented Diagnoses: Schizophrenia Treatment Plan Patient will be admitted for inpatient psychiatric evaluation, medication adjustment and close monitoring The patient's behavior, mood, sleep and appetite will be closely monitored. Patient will be enrolled in individual and group therapeutic sessions and encouraged to attend. Patient will be provided with a safe and structured environment. Patient's physical health needs will be addressed by the Hospitalist. Hospitalist Consulted Labs including CBC, CMP, Lipid profile and Hemoglobin A1C ordered Social Assessment will be completed and the Vitamin Manager will work with patient and family to ensure a suitable and safe disposition Medication adjustment will be made as clinically indicated Zoloft 50mg po daily Usual Wellness Muslim/Preservation: - Start Trazodone 50 mg po QHS The patient agreed on the treatment plan, understood the risk, benefit, alternative treatment, potential consequence of no treatment, and gave informed consent. LOS 7 days Case staffed with Dr. Inman Medications and Allergies Allergies Allergy/AdvReac Type Severity Reaction Status Date / Time No Known Allergies Allergy Unverified 06/07/22 18:05 Home Medications Medication Instructions Recorded Confirmed Last Taken Type Docusate Sodium [Colace CAP] 100 mg PO PRN 06/07/22 06/07/22 Unknown History Letrozole (Nf) [Femara (Nf)] 2.5 mg PO QDAY 06/07/22 06/07/22 Unknown History Meclizine [Antivert] 25 mg PO DAILY 06/07/22 06/07/22 Unknown History Venlafaxine [Effexor] 75 mg PO QHS 06/07/22 06/07/22 Unknown History Omeprazole 20 mg PO QAM 06/08/22 06/08/22 Unknown History Active Meds: Active Medications Acetaminophen (Acetaminophen 325 Mg Tab) 650 mg PO Q4H PRN PRN Reason: Pain, Mild (1-3) Last Admin: 06/12/22 15:49 Dose: 650 mg Docusate Sodium (Docusate Sodium 100 Mg Cap) 100 mg PO BID PRN PRN Reason: Constipation Hydralazine HCl (Hydralazine 10 Mg Tab) 10 mg PO Q8HR [facility] Meclizine HCl (Meclizine 25 Mg Tab) 25 mg PO DAILY [facility] Last Admin: 06/13/22 09:45 Dose: 25 mg Nicotine (Nicotine 21 Mg/24 Hr Patch) 21 mg TD QDAY [facility] Last Admin: 06/13/22 09:45 Dose: 21 mg Sertraline HCl (Sertraline 50 Mg Tab) 50 mg PO QDAY [facility] Last Admin: 06/13/22 09:45 Dose: 50 mg Trazodone HCl (Trazodone 50 Mg Tab) 50 mg PO QHS [facility] Last Admin: 06/12/22 21:05 Dose: 50 mg Results - Results Labs/Vitals: Laboratory Last Values WBC 4.4 K/mm3 (4.5-11.0) L 06/08/22 06:36 RBC 4.09 M/mm3 (3.65-5.03) 06/08/22 06:36 Hgb 12.7 gm/dl (10.1-14.3) 06/08/22 06:36 Hct 37.3 % (30.3-42.9) 06/08/22 06:36 MCV 91 fl (79-97) 06/08/22 06:36 MCH 31 pg (28-32) 06/08/22 06:36 MCHC 34 % (30-34) 06/08/22 06:36 RDW 14.5 % (13.2-15.2) 06/08/22 06:36 Plt Count 254 K/mm3 (140-440) 06/08/22 06:36 Lymph % (Auto) [employer] Specialist 06/08/22 06:36 Add Manual Diff Complete 06/08/22 06:36 Total Counted 100 06/08/22 06:36 Seg Neutrophils % [employer] Specialist 06/08/22 06:36 Seg Neuts % (Manual) 35.0 % (40.0-70.0) L 06/08/22 06:36 Band Neutrophils % 0 % 06/08/22 06:36 Lymphocytes % (Manual) 56.0 % (13.4-35.0) H 06/08/22 06:36 Reactive Lymphs % (Man) 0 % 06/08/22 06:36 Monocytes % (Manual) 3.0 % (0.0-7.3) 06/08/22 06:36 Eosinophils % (Manual) 3.0 % (0.0-4.3) 06/08/22 06:36 Basophils % (Manual) 3.0 % (0.0-1.8) H 06/08/22 06:36 Metamyelocytes % 0 % 06/08/22 06:36 Myelocytes % 0 % 06/08/22 06:36 Promyelocytes % 0 % 06/08/22 06:36 Blast Cells % 0 % 06/08/22 06:36 Nucleated RBC % Not Reportable 06/08/22 06:36 Seg Neutrophils # Man 1.5 K/mm3 (1.8-7.7) L 06/08/22 06:36 Band Neutrophils # 0.0 K/mm3 06/08/22 06:36 Lymphocytes # (Manual) 2.5 K/mm3 (1.2-5.4) 06/08/22 06:36 Abs React Lymphs (Man) 0.0 K/mm3 06/08/22 06:36 Monocytes # (Manual) 0.1 K/mm3 (0.0-0.8) 06/08/22 06:36 Eosinophils # (Manual) 0.1 K/mm3 (0.0-0.4) 06/08/22 06:36 Basophils # (Manual) 0.1 K/mm3 (0.0-0.1) 06/08/22 06:36 Metamyelocytes # 0.0 K/mm3 06/08/22 06:36 Myelocytes # 0.0 K/mm3 06/08/22 06:36 Promyelocytes # 0.0 K/mm3 06/08/22 06:36 Blast Cells # 0.0 K/mm3 06/08/22 06:36 WBC Morphology Not Reportable 06/08/22 06:36 Hypersegmented Neuts Not Reportable 06/08/22 06:36 Hyposegmented Neuts Not Reportable 06/08/22 06:36 Hypogranular Neuts Not Reportable 06/08/22 06:36 Smudge Cells Not Reportable 06/08/22 06:36 Toxic Granulation Not Reportable 06/08/22 06:36 Toxic Vacuolation Not Reportable 06/08/22 06:36 Dohle Bodies Not Reportable 06/08/22 06:36 Pelger-Huet Anomaly Not Reportable 06/08/22 06:36 Justine Rods Not Reportable 06/08/22 06:36 Platelet Estimate Consistent w auto 06/08/22 06:36 Clumped Platelets Not Reportable 06/08/22 06:36 Plt Clumps, EDTA Not Reportable 06/08/22 06:36 Large Platelets Rare 06/08/22 06:36 Giant Platelets Not Reportable 06/08/22 06:36 Platelet Satelliting Not Reportable 06/08/22 06:36 Plt Morphology Comment Not Reportable 06/08/22 06:36 RBC Morphology Not Reportable 06/08/22 06:36 Dimorphic RBCs Not Reportable 06/08/22 06:36 Polychromasia Not Reportable 06/08/22 06:36 Hypochromasia Few 06/08/22 06:36 Poikilocytosis Not Reportable 06/08/22 06:36 Anisocytosis Not Reportable 06/08/22 06:36 Microcytosis Not Reportable 06/08/22 06:36 Macrocytosis Not Reportable 06/08/22 06:36 Spherocytes Not Reportable 06/08/22 06:36 Pappenheimer Bodies Not Reportable 06/08/22 06:36 Sickle Cells Not Reportable 06/08/22 06:36 Target Cells Not Reportable 06/08/22 06:36 Tear Drop Cells Not Reportable 06/08/22 06:36 Ovalocytes Not Reportable 06/08/22 06:36 Helmet Cells Not Reportable 06/08/22 06:36 [place] Bodies Not Reportable 06/08/22 06:36 [place] Rings Not Reportable 06/08/22 06:36 [place] Cells Not Reportable 06/08/22 06:36 Bite Cells Not Reportable 06/08/22 06:36 Crenated Cell Not Reportable 06/08/22 06:36 Elliptocytes Not Reportable 06/08/22 06:36 Acanthocytes (Spur) Not Reportable 06/08/22 06:36 Rouleaux Not Reportable 06/08/22 06:36 Hemoglobin C Crystals Not Reportable 06/08/22 06:36 Schistocytes Not Reportable 06/08/22 06:36 Malaria parasites Not Reportable 06/08/22 06:36 Pk Bodies Not Reportable 06/08/22 06:36 Hem Pathologist Commnt No 06/08/22 06:36 Sodium 139 mmol/L (137-145) 06/08/22 06:36 Potassium 3.7 mmol/L (3.6-5.0) 06/08/22 06:36 Chloride 105.7 mmol/L (98-107) 06/08/22 06:36 Carbon Dioxide 27 mmol/L (22-30) 06/08/22 06:36 Anion Gap 10 mmol/L 06/08/22 06:36 BUN 10 mg/dL (7-17) 06/08/22 06:36 Creatinine 0.6 mg/dL (0.6-1.2) 06/08/22 06:36 Estimated GFR > 60 ml/min 06/08/22 06:36 BUN/Creatinine Ratio 17 % 06/08/22 06:36 Glucose 82 mg/dL (65-100) 06/08/22 06:36 POC Glucose 83 mg/dL (70-105) 06/08/22 07:11 Hemoglobin A1c 5.8 % (4-6) 06/08/22 06:36 Calcium 9.3 mg/dL (8.4-10.2) 06/08/22 06:36 Total Bilirubin 0.30 mg/dL (0.1-1.2) 06/08/22 06:36 AST 28 units/L (5-40) 06/08/22 06:36 ALT 20 units/L (7-56) 06/08/22 06:36 Alkaline Phosphatase 85 units/L (35-129) 06/08/22 06:36 Total Protein 6.8 g/dL (6.3-8.2) 06/08/22 06:36 Albumin 3.8 g/dL (3.9-5) L 06/08/22 06:36 Albumin/Globulin Ratio 1.3 % 06/08/22 06:36 Triglycerides 61 mg/dL (2-149) 06/08/22 06:36 Cholesterol 173 mg/dL (50-199) 06/08/22 06:36 LDL Cholesterol Direct 92 mg/dL (50-130) 06/08/22 06:36 HDL Cholesterol 73 mg/dL (40-59) H 06/08/22 06:36 Cholesterol/HDL Ratio 2.36 % 06/08/22 06:36 TSH 1.350 mlU/mL (0.270-4.200) 06/08/22 06:36 Urine Color Straw (Yellow) 06/08/22 10:30 Urine Turbidity Clear (Clear) 06/08/22 10:30 Urine pH 7.0 (5.0-7.0) 06/08/22 10:30 Ur Specific [place] 1.010 (1.003-1.030) 06/08/22 10:30 Urine Protein <15 mg/dl mg/dL (Negative) 06/08/22 10:30 Urine Glucose (UA) Negative mg/dL (Negative) 06/08/22 10:30 Urine Ketones Negative mg/dL (Negative) 06/08/22 10:30 Urine Blood Trace (Negative) 06/08/22 10:30 Urine Nitrite Negative (Negative) 06/08/22 10:30 Ur Reducing Substances Not Reportable 06/08/22 10:30 Urine Bilirubin Negative (Negative) 06/08/22 10:30 Urine Ictotest Not Reportable 06/08/22 10:30 Urine Urobilinogen < 2.0 mg/dL (<2.0) 06/08/22 10:30 Ur Leukocyte Esterase Negative (Negative) 06/08/22 10:30 Urine WBC (Auto) 1.0 /HPF (0.0-6.0) 06/08/22 10:30 Urine RBC (Auto) 1.0 /HPF (0.0-6.0) 06/08/22 10:30 U Epithel Cells (Auto) 4.0 /HPF (0-13.0) 06/08/22 10:30 Urine Mucus Few /HPF 06/08/22 10:30 Last Vital Signs Temp 97.2 F L 06/13/22 08:58 Pulse 69 06/13/22 08:58 Resp 16 06/13/22 08:58 BP 142/90 06/13/22 08:58 Pulse Ox 100 06/13/22 08:58
[2022-06-13] MEDS: hydrALAZINE 10 MG TAB PO SCH ×2 (13:56→22:03)
[2022-06-13] MEDS: traZODone 50 MG TAB PO SCH (22:03)
--- NOTE | 2022-06-14 04:07 | Progress Note ---
Assessment and Plan Assessment and plan: -- Gastroesophageal reflux disease; Protonic and supportive care --History of vertigo; Fall precautions, meclizine as needed Physical therapy as indicated --Ongoing tobacco use; Smoking cessation counseling done Nicotine patch as needed -- Danger to self and severe anxiety and depression; Management per psych --History of breast cancer status postmastectomy Supportive care -DVT prophylaxis; SCDs while resting, ambulate as tolerated Closely monitor the patient and adjust management as needed Thank you for this consultation We will follow the patient along with you Continue current management Plan of care reviewed with the patient and her nurse Call us with questions We will follow the patient along with you History Interval history: I seen and examined the patient in the activity room Patient feels slightly better No new complaints Anxious to go home Not taking part in the [employer] game activity She says that she does not like the game No new complaints Vital signs noted Hospitalist Physical - Constitutional Vitals: Temp Pulse Resp BP Pulse Ox 97.2 F L 84 16 121/82 100 06/13/22 08:58 06/13/22 22:03 06/13/22 08:58 06/13/22 22:03 06/13/22 08:58 General appearance: Present: no acute distress, well-nourished - EENT Eyes: Present: PERRL, EOM intact - Neck Neck: Present: supple, normal ROM - Respiratory Respiratory effort: normal Respiratory: bilateral: diminished, negative: rales, rhonchi, wheezing - Cardiovascular Rhythm: regular Heart Sounds: Present: S1 & S2 - Extremities Extremities: no ischemia, No edema Peripheral Pulses: within normal limits - Abdominal General gastrointestinal: soft, non-tender, non-distended, normal bowel sounds - Integumentary Integumentary: Present: clear, warm - Psychiatric Psychiatric: appropriate mood/affect, cooperative - Neurologic Neurologic: moves all extremities Results - Labs CBC & Chem 7: 06/08/22 06:36 06/08/22 06:36 Labs: Laboratory Last Values WBC 4.4 K/mm3 (4.5-11.0) L 06/08/22 06:36 RBC 4.09 M/mm3 (3.65-5.03) 06/08/22 06:36 Hgb 12.7 gm/dl (10.1-14.3) 06/08/22 06:36 Hct 37.3 % (30.3-42.9) 06/08/22 06:36 MCV 91 fl (79-97) 06/08/22 06:36 MCH 31 pg (28-32) 06/08/22 06:36 MCHC 34 % (30-34) 06/08/22 06:36 RDW 14.5 % (13.2-15.2) 06/08/22 06:36 Plt Count 254 K/mm3 (140-440) 06/08/22 06:36 Lymph % (Auto) Data Warehousing Architect 06/08/22 06:36 Add Manual Diff Complete 06/08/22 06:36 Total Counted 100 06/08/22 06:36 Seg Neutrophils % Data Warehousing Architect 06/08/22 06:36 Seg Neuts % (Manual) 35.0 % (40.0-70.0) L 06/08/22 06:36 Band Neutrophils % 0 % 06/08/22 06:36 Lymphocytes % (Manual) 56.0 % (13.4-35.0) H 06/08/22 06:36 Reactive Lymphs % (Man) 0 % 06/08/22 06:36 Monocytes % (Manual) 3.0 % (0.0-7.3) 06/08/22 06:36 Eosinophils % (Manual) 3.0 % (0.0-4.3) 06/08/22 06:36 Basophils % (Manual) 3.0 % (0.0-1.8) H 06/08/22 06:36 Metamyelocytes % 0 % 06/08/22 06:36 Myelocytes % 0 % 06/08/22 06:36 Promyelocytes % 0 % 06/08/22 06:36 Blast Cells % 0 % 06/08/22 06:36 Nucleated RBC % Not Reportable 06/08/22 06:36 Seg Neutrophils # Man 1.5 K/mm3 (1.8-7.7) L 06/08/22 06:36 Band Neutrophils # 0.0 K/mm3 06/08/22 06:36 Lymphocytes # (Manual) 2.5 K/mm3 (1.2-5.4) 06/08/22 06:36 Abs React Lymphs (Man) 0.0 K/mm3 06/08/22 06:36 Monocytes # (Manual) 0.1 K/mm3 (0.0-0.8) 06/08/22 06:36 Eosinophils # (Manual) 0.1 K/mm3 (0.0-0.4) 06/08/22 06:36 Basophils # (Manual) 0.1 K/mm3 (0.0-0.1) 06/08/22 06:36 Metamyelocytes # 0.0 K/mm3 06/08/22 06:36 Myelocytes # 0.0 K/mm3 06/08/22 06:36 Promyelocytes # 0.0 K/mm3 06/08/22 06:36 Blast Cells # 0.0 K/mm3 06/08/22 06:36 WBC Morphology Not Reportable 06/08/22 06:36 Hypersegmented Neuts Not Reportable 06/08/22 06:36 Hyposegmented Neuts Not Reportable 06/08/22 06:36 Hypogranular Neuts Not Reportable 06/08/22 06:36 Smudge Cells Not Reportable 06/08/22 06:36 Toxic Granulation Not Reportable 06/08/22 06:36 Toxic Vacuolation Not Reportable 06/08/22 06:36 Dohle Bodies Not Reportable 06/08/22 06:36 Pelger-Huet Anomaly Not Reportable 06/08/22 06:36 Justine Rods Not Reportable 06/08/22 06:36 Platelet Estimate Consistent w auto 06/08/22 06:36 Clumped Platelets Not Reportable 06/08/22 06:36 Plt Clumps, EDTA Not Reportable 06/08/22 06:36 Large Platelets Rare 06/08/22 06:36 Giant Platelets Not Reportable 06/08/22 06:36 Platelet Satelliting Not Reportable 06/08/22 06:36 Plt Morphology Comment Not Reportable 06/08/22 06:36 RBC Morphology Not Reportable 06/08/22 06:36 Dimorphic RBCs Not Reportable 06/08/22 06:36 Polychromasia Not Reportable 06/08/22 06:36 Hypochromasia Few 06/08/22 06:36 Poikilocytosis Not Reportable 06/08/22 06:36 Anisocytosis Not Reportable 06/08/22 06:36 Microcytosis Not Reportable 06/08/22 06:36 Macrocytosis Not Reportable 06/08/22 06:36 Spherocytes Not Reportable 06/08/22 06:36 Pappenheimer Bodies Not Reportable 06/08/22 06:36 Sickle Cells Not Reportable 06/08/22 06:36 Target Cells Not Reportable 06/08/22 06:36 Tear Drop Cells Not Reportable 06/08/22 06:36 Ovalocytes Not Reportable 06/08/22 06:36 Helmet Cells Not Reportable 06/08/22 06:36 [place] Bodies Not Reportable 06/08/22 06:36 [place] Rings Not Reportable 06/08/22 06:36 [place] Cells Not Reportable 06/08/22 06:36 Bite Cells Not Reportable 06/08/22 06:36 Crenated Cell Not Reportable 06/08/22 06:36 Elliptocytes Not Reportable 06/08/22 06:36 Acanthocytes (Spur) Not Reportable 06/08/22 06:36 Rouleaux Not Reportable 06/08/22 06:36 Hemoglobin C Crystals Not Reportable 06/08/22 06:36 Schistocytes Not Reportable 06/08/22 06:36 Malaria parasites Not Reportable 06/08/22 06:36 Pk Bodies Not Reportable 06/08/22 06:36 Hem Pathologist Commnt No 06/08/22 06:36 Sodium 139 mmol/L (137-145) 06/08/22 06:36 Potassium 3.7 mmol/L (3.6-5.0) 06/08/22 06:36 Chloride 105.7 mmol/L (98-107) 06/08/22 06:36 Carbon Dioxide 27 mmol/L (22-30) 06/08/22 06:36 Anion Gap 10 mmol/L 06/08/22 06:36 BUN 10 mg/dL (7-17) 06/08/22 06:36 Creatinine 0.6 mg/dL (0.6-1.2) 06/08/22 06:36 Estimated GFR > 60 ml/min 06/08/22 06:36 BUN/Creatinine Ratio 17 % 06/08/22 06:36 Glucose 82 mg/dL (65-100) 06/08/22 06:36 POC Glucose 83 mg/dL (70-105) 06/08/22 07:11 Hemoglobin A1c 5.8 % (4-6) 06/08/22 06:36 Calcium 9.3 mg/dL (8.4-10.2) 06/08/22 06:36 Total Bilirubin 0.30 mg/dL (0.1-1.2) 06/08/22 06:36 AST 28 units/L (5-40) 06/08/22 06:36 ALT 20 units/L (7-56) 06/08/22 06:36 Alkaline Phosphatase 85 units/L (35-129) 06/08/22 06:36 Total Protein 6.8 g/dL (6.3-8.2) 06/08/22 06:36 Albumin 3.8 g/dL (3.9-5) L 06/08/22 06:36 Albumin/Globulin Ratio 1.3 % 06/08/22 06:36 Triglycerides 61 mg/dL (2-149) 06/08/22 06:36 Cholesterol 173 mg/dL (50-199) 06/08/22 06:36 LDL Cholesterol Direct 92 mg/dL (50-130) 06/08/22 06:36 HDL Cholesterol 73 mg/dL (40-59) H 06/08/22 06:36 Cholesterol/HDL Ratio 2.36 % 06/08/22 06:36 TSH 1.350 mlU/mL (0.270-4.200) 06/08/22 06:36 Urine Color Straw (Yellow) 06/08/22 10:30 Urine Turbidity Clear (Clear) 06/08/22 10:30 Urine pH 7.0 (5.0-7.0) 06/08/22 10:30 Ur Specific [place] 1.010 (1.003-1.030) 06/08/22 10:30 Urine Protein <15 mg/dl mg/dL (Negative) 06/08/22 10:30 Urine Glucose (UA) Negative mg/dL (Negative) 06/08/22 10:30 Urine Ketones Negative mg/dL (Negative) 06/08/22 10:30 Urine Blood Trace (Negative) 06/08/22 10:30 Urine Nitrite Negative (Negative) 06/08/22 10:30 Ur Reducing Substances Not Reportable 06/08/22 10:30 Urine Bilirubin Negative (Negative) 06/08/22 10:30 Urine Ictotest Not Reportable 06/08/22 10:30 Urine Urobilinogen < 2.0 mg/dL (<2.0) 06/08/22 10:30 Ur Leukocyte Esterase Negative (Negative) 06/08/22 10:30 Urine WBC (Auto) 1.0 /HPF (0.0-6.0) 06/08/22 10:30 Urine RBC (Auto) 1.0 /HPF (0.0-6.0) 06/08/22 10:30 U Epithel Cells (Auto) 4.0 /HPF (0-13.0) 06/08/22 10:30 Urine Mucus Few /HPF 06/08/22 10:30 Carlos/IV: Voiding Method Toilet Active Medications - Current Medications Current Medications: Generic Name Dose Route Start Last Admin Trade Name Freq PRN Reason Stop Dose Admin Acetaminophen 650 mg 06/12/22 15:35 06/12/22 15:49 Acetaminophen 325 Mg Tab PO 650 mg Q4H PRN Administration Pain, Mild (1-3) Docusate Sodium 100 mg 06/09/22 20:00 Docusate Sodium 100 Mg Cap PO BID PRN Constipation Hydralazine HCl 10 mg 06/13/22 14:00 06/13/22 22:03 Hydralazine 10 Mg Tab PO 10 mg Q8HR KEVIN Administration Meclizine HCl 25 mg 06/10/22 10:00 06/13/22 09:45 Meclizine 25 Mg Tab PO 25 mg DAILY KEVIN Administration Nicotine 21 mg 06/08/22 17:00 06/13/22 09:45 Nicotine 21 Mg/24 Hr Patch TD 21 mg QDAY KEVIN Administration Sertraline HCl 50 mg 06/13/22 10:00 06/13/22 09:45 Sertraline 50 Mg Tab PO 50 mg QDAY KEVIN Administration Trazodone HCl 50 mg 06/08/22 01:30 06/13/22 22:03 Trazodone 50 Mg Tab PO 50 mg QHS KEVIN Administration
[2022-06-14] MEDS: hydrALAZINE 10 MG TAB PO SCH (06:30)
[2022-06-14 08:15] VITALS: BP 131/92
[2022-06-14] MEDS: NICOTINE 21 MG/24 HR PATCH TD SCH (09:22)
[2022-06-14] MEDS: MECLIZINE 25 MG TAB PO SCH (09:22)
[2022-06-14] MEDS: SERTRALINE 50 MG TAB PO SCH (09:23)
--- NOTE | 2022-06-14 09:30 | Discharge Summary ---
Providers - Providers Date of Admission: 06/08/22 01:13 Date of discharge: 06/14/22 Attending physician: DANO MORAN MD 06/08/22 00:23 Consult to Physician [CONS] Routine Comment: Consulting Provider: SAUL CALERO Physician Instructions: Ps manage conditions per H&P Reason For Exam: New admission Primary care physician: JOHN JONES Hospitalization Reason for admission: SI Admitting Diagnosis: F20.9 - SCHIZOPHRENIA, UNSPECIFIED Condition: Stable Disposition: 01 HOME / SELF CARE / HOMELESS Time spent for discharge: 35 Allergies/Adverse Reactions: Allergies No Known Allergies Allergy (Unverified 06/07/22 18:05) Vital Signs: Last Vital Signs Temp 97.2 F L 06/13/22 08:58 Pulse 82 06/14/22 06:30 Resp 16 06/13/22 08:58 BP 131/92 06/14/22 06:30 Pulse Ox 100 06/13/22 08:58 Last Lab: Laboratory Last Values WBC 4.4 K/mm3 (4.5-11.0) L 06/08/22 06:36 RBC 4.09 M/mm3 (3.65-5.03) 06/08/22 06:36 Hgb 12.7 gm/dl (10.1-14.3) 06/08/22 06:36 Hct 37.3 % (30.3-42.9) 06/08/22 06:36 MCV 91 fl (79-97) 06/08/22 06:36 MCH 31 pg (28-32) 06/08/22 06:36 MCHC 34 % (30-34) 06/08/22 06:36 RDW 14.5 % (13.2-15.2) 06/08/22 06:36 Plt Count 254 K/mm3 (140-440) 06/08/22 06:36 Lymph % (Auto) Adult Basic Education Instructor 06/08/22 06:36 Add Manual Diff Complete 06/08/22 06:36 Total Counted 100 06/08/22 06:36 Seg Neutrophils % Adult Basic Education Instructor 06/08/22 06:36 Seg Neuts % (Manual) 35.0 % (40.0-70.0) L 06/08/22 06:36 Band Neutrophils % 0 % 06/08/22 06:36 Lymphocytes % (Manual) 56.0 % (13.4-35.0) H 06/08/22 06:36 Reactive Lymphs % (Man) 0 % 06/08/22 06:36 Monocytes % (Manual) 3.0 % (0.0-7.3) 06/08/22 06:36 Eosinophils % (Manual) 3.0 % (0.0-4.3) 06/08/22 06:36 Basophils % (Manual) 3.0 % (0.0-1.8) H 06/08/22 06:36 Metamyelocytes % 0 % 06/08/22 06:36 Myelocytes % 0 % 06/08/22 06:36 Promyelocytes % 0 % 06/08/22 06:36 Blast Cells % 0 % 06/08/22 06:36 Nucleated RBC % Not Reportable 06/08/22 06:36 Seg Neutrophils # Man 1.5 K/mm3 (1.8-7.7) L 06/08/22 06:36 Band Neutrophils # 0.0 K/mm3 06/08/22 06:36 Lymphocytes # (Manual) 2.5 K/mm3 (1.2-5.4) 06/08/22 06:36 Abs React Lymphs (Man) 0.0 K/mm3 06/08/22 06:36 Monocytes # (Manual) 0.1 K/mm3 (0.0-0.8) 06/08/22 06:36 Eosinophils # (Manual) 0.1 K/mm3 (0.0-0.4) 06/08/22 06:36 Basophils # (Manual) 0.1 K/mm3 (0.0-0.1) 06/08/22 06:36 Metamyelocytes # 0.0 K/mm3 06/08/22 06:36 Myelocytes # 0.0 K/mm3 06/08/22 06:36 Promyelocytes # 0.0 K/mm3 06/08/22 06:36 Blast Cells # 0.0 K/mm3 06/08/22 06:36 WBC Morphology Not Reportable 06/08/22 06:36 Hypersegmented Neuts Not Reportable 06/08/22 06:36 Hyposegmented Neuts Not Reportable 06/08/22 06:36 Hypogranular Neuts Not Reportable 06/08/22 06:36 Smudge Cells Not Reportable 06/08/22 06:36 Toxic Granulation Not Reportable 06/08/22 06:36 Toxic Vacuolation Not Reportable 06/08/22 06:36 Dohle Bodies Not Reportable 06/08/22 06:36 Pelger-Huet Anomaly Not Reportable 06/08/22 06:36 Justine Rods Not Reportable 06/08/22 06:36 Platelet Estimate Consistent w auto 06/08/22 06:36 Clumped Platelets Not Reportable 06/08/22 06:36 Plt Clumps, EDTA Not Reportable 06/08/22 06:36 Large Platelets Rare 06/08/22 06:36 Giant Platelets Not Reportable 06/08/22 06:36 Platelet Satelliting Not Reportable 06/08/22 06:36 Plt Morphology Comment Not Reportable 06/08/22 06:36 RBC Morphology Not Reportable 06/08/22 06:36 Dimorphic RBCs Not Reportable 06/08/22 06:36 Polychromasia Not Reportable 06/08/22 06:36 Hypochromasia Few 06/08/22 06:36 Poikilocytosis Not Reportable 06/08/22 06:36 Anisocytosis Not Reportable 06/08/22 06:36 Microcytosis Not Reportable 06/08/22 06:36 Macrocytosis Not Reportable 06/08/22 06:36 Spherocytes Not Reportable 06/08/22 06:36 Pappenheimer Bodies Not Reportable 06/08/22 06:36 Sickle Cells Not Reportable 06/08/22 06:36 Target Cells Not Reportable 06/08/22 06:36 Tear Drop Cells Not Reportable 06/08/22 06:36 Ovalocytes Not Reportable 06/08/22 06:36 Helmet Cells Not Reportable 06/08/22 06:36 Bor[place] Bodies Not Reportable 06/08/22 06:36 [place] Rings Not Reportable 06/08/22 06:36 [place] Cells Not Reportable 06/08/22 06:36 Bite Cells Not Reportable 06/08/22 06:36 Crenated Cell Not Reportable 06/08/22 06:36 Elliptocytes Not Reportable 06/08/22 06:36 Acanthocytes (Spur) Not Reportable 06/08/22 06:36 Rouleaux Not Reportable 06/08/22 06:36 Hemoglobin C Crystals Not Reportable 06/08/22 06:36 Schistocytes Not Reportable 06/08/22 06:36 Malaria parasites Not Reportable 06/08/22 06:36 Pk Bodies Not Reportable 06/08/22 06:36 Hem Pathologist Commnt No 06/08/22 06:36 Sodium 139 mmol/L (137-145) 06/08/22 06:36 Potassium 3.7 mmol/L (3.6-5.0) 06/08/22 06:36 Chloride 105.7 mmol/L (98-107) 06/08/22 06:36 Carbon Dioxide 27 mmol/L (22-30) 06/08/22 06:36 Anion Gap 10 mmol/L 06/08/22 06:36 BUN 10 mg/dL (7-17) 06/08/22 06:36 Creatinine 0.6 mg/dL (0.6-1.2) 06/08/22 06:36 Estimated GFR > 60 ml/min 06/08/22 06:36 BUN/Creatinine Ratio 17 % 06/08/22 06:36 Glucose 82 mg/dL (65-100) 06/08/22 06:36 POC Glucose 83 mg/dL (70-105) 06/08/22 07:11 Hemoglobin A1c 5.8 % (4-6) 06/08/22 06:36 Calcium 9.3 mg/dL (8.4-10.2) 06/08/22 06:36 Total Bilirubin 0.30 mg/dL (0.1-1.2) 06/08/22 06:36 AST 28 units/L (5-40) 06/08/22 06:36 ALT 20 units/L (7-56) 06/08/22 06:36 Alkaline Phosphatase 85 units/L (35-129) 06/08/22 06:36 Total Protein 6.8 g/dL (6.3-8.2) 06/08/22 06:36 Albumin 3.8 g/dL (3.9-5) L 06/08/22 06:36 Albumin/Globulin Ratio 1.3 % 06/08/22 06:36 Triglycerides 61 mg/dL (2-149) 06/08/22 06:36 Cholesterol 173 mg/dL (50-199) 06/08/22 06:36 LDL Cholesterol Direct 92 mg/dL (50-130) 06/08/22 06:36 HDL Cholesterol 73 mg/dL (40-59) H 06/08/22 06:36 Cholesterol/HDL Ratio 2.36 % 06/08/22 06:36 TSH 1.350 mlU/mL (0.270-4.200) 06/08/22 06:36 Urine Color Straw (Yellow) 06/08/22 10:30 Urine Turbidity Clear (Clear) 06/08/22 10:30 Urine pH 7.0 (5.0-7.0) 06/08/22 10:30 Ur Specific [place] 1.010 (1.003-1.030) 06/08/22 10:30 Urine Protein <15 mg/dl mg/dL (Negative) 06/08/22 10:30 Urine Glucose (UA) Negative mg/dL (Negative) 06/08/22 10:30 Urine Ketones Negative mg/dL (Negative) 06/08/22 10:30 Urine Blood Trace (Negative) 06/08/22 10:30 Urine Nitrite Negative (Negative) 06/08/22 10:30 Ur Reducing Substances Not Reportable 06/08/22 10:30 Urine Bilirubin Negative (Negative) 06/08/22 10:30 Urine Ictotest Not Reportable 06/08/22 10:30 Urine Urobilinogen < 2.0 mg/dL (<2.0) 06/08/22 10:30 Ur Leukocyte Esterase Negative (Negative) 06/08/22 10:30 Urine WBC (Auto) 1.0 /HPF (0.0-6.0) 06/08/22 10:30 Urine RBC (Auto) 1.0 /HPF (0.0-6.0) 06/08/22 10:30 U Epithel Cells (Auto) 4.0 /HPF (0-13.0) 06/08/22 10:30 Urine Mucus Few /HPF 06/08/22 10:30 Core Measure Documentation - Palliative Care Palliative Care/ Comfort Measures: Not Applicable - Core Measures Any of the following diagnoses?: none Exam - Constitutional Vitals: Temp Pulse Resp BP Pulse Ox 97.2 F L 82 16 131/92 100 06/13/22 08:58 06/14/22 06:30 06/13/22 08:58 06/14/22 06:30 06/13/22 08:58 General appearance: Present: no acute distress - EENT Eyes: Present: PERRL, EOM intact ENT: hearing intact, clear oral mucosa - Neck Neck: Present: supple, normal ROM - Respiratory Respiratory effort: normal Plan Activity: advance as tolerated Weight Bearing Status: Weight Bear as Tolerated Care Plan Goals: Maintain good and stable mental health Plan of Treatment: The patient should be compliant with medications, not to use drugs, and not to d rink alcohol. The patient understands that if suicidal ideas, homicidal ideas or any endangering feeling arise, the patient should seek assistance including, but not limited to crisis hotline, and emergency room. Assessment: Schizophrenia Follow up with: JOHN JONES MD [Primary Care Provider] - 7 Days Prescriptions: traZODone [Desyrel] 50 mg PO QHS #30 tablet Nicotine [Habitrol] 21 mg TD QDAY #30 patch Sertraline [Zoloft] 50 mg PO QDAY #30 tablet
--- NOTE | 2022-06-14 11:23 | Progress Note ---
Hospitalist Physical - Constitutional Vitals: Temp Pulse Resp BP Pulse Ox 97.2 F L 82 16 131/92 100 06/13/22 08:58 06/14/22 06:30 06/13/22 08:58 06/14/22 06:30 06/13/22 08:58 General appearance: Present: no acute distress Results - Labs CBC & Chem 7: 06/08/22 06:36 06/08/22 06:36 Labs: Laboratory Last Values WBC 4.4 K/mm3 (4.5-11.0) L 06/08/22 06:36 RBC 4.09 M/mm3 (3.65-5.03) 06/08/22 06:36 Hgb 12.7 gm/dl (10.1-14.3) 06/08/22 06:36 Hct 37.3 % (30.3-42.9) 06/08/22 06:36 MCV 91 fl (79-97) 06/08/22 06:36 MCH 31 pg (28-32) 06/08/22 06:36 MCHC 34 % (30-34) 06/08/22 06:36 RDW 14.5 % (13.2-15.2) 06/08/22 06:36 Plt Count 254 K/mm3 (140-440) 06/08/22 06:36 Lymph % (Auto) Fitness Teacher 06/08/22 06:36 Add Manual Diff Complete 06/08/22 06:36 Total Counted 100 06/08/22 06:36 Seg Neutrophils % Fitness Teacher 06/08/22 06:36 Seg Neuts % (Manual) 35.0 % (40.0-70.0) L 06/08/22 06:36 Band Neutrophils % 0 % 06/08/22 06:36 Lymphocytes % (Manual) 56.0 % (13.4-35.0) H 06/08/22 06:36 Reactive Lymphs % (Man) 0 % 06/08/22 06:36 Monocytes % (Manual) 3.0 % (0.0-7.3) 06/08/22 06:36 Eosinophils % (Manual) 3.0 % (0.0-4.3) 06/08/22 06:36 Basophils % (Manual) 3.0 % (0.0-1.8) H 06/08/22 06:36 Metamyelocytes % 0 % 06/08/22 06:36 Myelocytes % 0 % 06/08/22 06:36 Promyelocytes % 0 % 06/08/22 06:36 Blast Cells % 0 % 06/08/22 06:36 Nucleated RBC % Not Reportable 06/08/22 06:36 Seg Neutrophils # Man 1.5 K/mm3 (1.8-7.7) L 06/08/22 06:36 Band Neutrophils # 0.0 K/mm3 06/08/22 06:36 Lymphocytes # (Manual) 2.5 K/mm3 (1.2-5.4) 06/08/22 06:36 Abs React Lymphs (Man) 0.0 K/mm3 06/08/22 06:36 Monocytes # (Manual) 0.1 K/mm3 (0.0-0.8) 06/08/22 06:36 Eosinophils # (Manual) 0.1 K/mm3 (0.0-0.4) 06/08/22 06:36 Basophils # (Manual) 0.1 K/mm3 (0.0-0.1) 06/08/22 06:36 Metamyelocytes # 0.0 K/mm3 06/08/22 06:36 Myelocytes # 0.0 K/mm3 06/08/22 06:36 Promyelocytes # 0.0 K/mm3 06/08/22 06:36 Blast Cells # 0.0 K/mm3 06/08/22 06:36 WBC Morphology Not Reportable 06/08/22 06:36 Hypersegmented Neuts Not Reportable 06/08/22 06:36 Hyposegmented Neuts Not Reportable 06/08/22 06:36 Hypogranular Neuts Not Reportable 06/08/22 06:36 Smudge Cells Not Reportable 06/08/22 06:36 Toxic Granulation Not Reportable 06/08/22 06:36 Toxic Vacuolation Not Reportable 06/08/22 06:36 Dohle Bodies Not Reportable 06/08/22 06:36 Pelger-Huet Anomaly Not Reportable 06/08/22 06:36 Justine Rods Not Reportable 06/08/22 06:36 Platelet Estimate Consistent w auto 06/08/22 06:36 Clumped Platelets Not Reportable 06/08/22 06:36 Plt Clumps, EDTA Not Reportable 06/08/22 06:36 Large Platelets Rare 06/08/22 06:36 Giant Platelets Not Reportable 06/08/22 06:36 Platelet Satelliting Not Reportable 06/08/22 06:36 Plt Morphology Comment Not Reportable 06/08/22 06:36 RBC Morphology Not Reportable 06/08/22 06:36 Dimorphic RBCs Not Reportable 06/08/22 06:36 Polychromasia Not Reportable 06/08/22 06:36 Hypochromasia Few 06/08/22 06:36 Poikilocytosis Not Reportable 06/08/22 06:36 Anisocytosis Not Reportable 06/08/22 06:36 Microcytosis Not Reportable 06/08/22 06:36 Macrocytosis Not Reportable 06/08/22 06:36 Spherocytes Not Reportable 06/08/22 06:36 Pappenheimer Bodies Not Reportable 06/08/22 06:36 Sickle Cells Not Reportable 06/08/22 06:36 Target Cells Not Reportable 06/08/22 06:36 Tear Drop Cells Not Reportable 06/08/22 06:36 Ovalocytes Not Reportable 06/08/22 06:36 Helmet Cells Not Reportable 06/08/22 06:36 Borjas-[place] Bodies Not Reportable 06/08/22 06:36 [place] Rings Not Reportable 06/08/22 06:36 [place] Cells Not Reportable 06/08/22 06:36 Bite Cells Not Reportable 06/08/22 06:36 Crenated Cell Not Reportable 06/08/22 06:36 Elliptocytes Not Reportable 06/08/22 06:36 Acanthocytes (Spur) Not Reportable 06/08/22 06:36 Rouleaux Not Reportable 06/08/22 06:36 Hemoglobin C Crystals Not Reportable 06/08/22 06:36 Schistocytes Not Reportable 06/08/22 06:36 Malaria parasites Not Reportable 06/08/22 06:36 Pk Bodies Not Reportable 06/08/22 06:36 Hem Pathologist Commnt No 06/08/22 06:36 Sodium 139 mmol/L (137-145) 06/08/22 06:36 Potassium 3.7 mmol/L (3.6-5.0) 06/08/22 06:36 Chloride 105.7 mmol/L (98-107) 06/08/22 06:36 Carbon Dioxide 27 mmol/L (22-30) 06/08/22 06:36 Anion Gap 10 mmol/L 06/08/22 06:36 BUN 10 mg/dL (7-17) 06/08/22 06:36 Creatinine 0.6 mg/dL (0.6-1.2) 06/08/22 06:36 Estimated GFR > 60 ml/min 06/08/22 06:36 BUN/Creatinine Ratio 17 % 06/08/22 06:36 Glucose 82 mg/dL (65-100) 06/08/22 06:36 POC Glucose 83 mg/dL (70-105) 06/08/22 07:11 Hemoglobin A1c 5.8 % (4-6) 06/08/22 06:36 Calcium 9.3 mg/dL (8.4-10.2) 06/08/22 06:36 Total Bilirubin 0.30 mg/dL (0.1-1.2) 06/08/22 06:36 AST 28 units/L (5-40) 06/08/22 06:36 ALT 20 units/L (7-56) 06/08/22 06:36 Alkaline Phosphatase 85 units/L (35-129) 06/08/22 06:36 Total Protein 6.8 g/dL (6.3-8.2) 06/08/22 06:36 Albumin 3.8 g/dL (3.9-5) L 06/08/22 06:36 Albumin/Globulin Ratio 1.3 % 06/08/22 06:36 Triglycerides 61 mg/dL (2-149) 06/08/22 06:36 Cholesterol 173 mg/dL (50-199) 06/08/22 06:36 LDL Cholesterol Direct 92 mg/dL (50-130) 06/08/22 06:36 HDL Cholesterol 73 mg/dL (40-59) H 06/08/22 06:36 Cholesterol/HDL Ratio 2.36 % 06/08/22 06:36 TSH 1.350 mlU/mL (0.270-4.200) 06/08/22 06:36 Urine Color Straw (Yellow) 06/08/22 10:30 Urine Turbidity Clear (Clear) 06/08/22 10:30 Urine pH 7.0 (5.0-7.0) 06/08/22 10:30 Ur Specific [place] 1.010 (1.003-1.030) 06/08/22 10:30 Urine Protein <15 mg/dl mg/dL (Negative) 06/08/22 10:30 Urine Glucose (UA) Negative mg/dL (Negative) 06/08/22 10:30 Urine Ketones Negative mg/dL (Negative) 06/08/22 10:30 Urine Blood Trace (Negative) 06/08/22 10:30 Urine Nitrite Negative (Negative) 06/08/22 10:30 Ur Reducing Substances Not Reportable 06/08/22 10:30 Urine Bilirubin Negative (Negative) 06/08/22 10:30 Urine Ictotest Not Reportable 06/08/22 10:30 Urine Urobilinogen < 2.0 mg/dL (<2.0) 06/08/22 10:30 Ur Leukocyte Esterase Negative (Negative) 06/08/22 10:30 Urine WBC (Auto) 1.0 /HPF (0.0-6.0) 06/08/22 10:30 Urine RBC (Auto) 1.0 /HPF (0.0-6.0) 06/08/22 10:30 U Epithel Cells (Auto) 4.0 /HPF (0-13.0) 06/08/22 10:30 Urine Mucus Few /HPF 06/08/22 10:30 Carlos/IV: Voiding Method Toilet Active Medications - Current Medications Current Medications: Generic Name Dose Route Start Last Admin Trade Name Freq PRN Reason Stop Dose Admin Acetaminophen 650 mg 06/12/22 15:35 06/12/22 15:49 Acetaminophen 325 Mg Tab PO 650 mg Q4H PRN Administration Pain, Mild (1-3) Docusate Sodium 100 mg 06/09/22 20:00 Docusate Sodium 100 Mg Cap PO BID PRN Constipation Hydralazine HCl 10 mg 06/13/22 14:00 06/14/22 06:30 Hydralazine 10 Mg Tab PO 10 mg Q8HR KEVIN Administration Meclizine HCl 25 mg 06/10/22 10:00 06/14/22 09:22 Meclizine 25 Mg Tab PO 25 mg DAILY KEVIN Administration Nicotine 21 mg 06/08/22 17:00 06/14/22 09:22 Nicotine 21 Mg/24 Hr Patch TD 21 mg QDAY KEVIN Administration Sertraline HCl 50 mg 06/13/22 10:00 06/14/22 09:23 Sertraline 50 Mg Tab PO 50 mg QDAY KEVIN Administration Trazodone HCl 50 mg 06/08/22 01:30 06/13/22 22:03 Trazodone 50 Mg Tab PO 50 mg QHS KEVIN Administration
== END 2022-06-14 18:10 | disposition home or self-care (01) | DRG 885 ==
LOC: UNDOADMIN 16:42 → 3A 16:42 → 5A 06-08 01:13
PROVIDERS: ADMIT Psychiatry & Neurology Psychiatry; ATTEND Psychiatry & Neurology Psychiatry
DX: F20.9 Schizophrenia, unspecified (principal); K21.9 Gastro-esophageal reflux disease without esophagitis; F41.9 Anxiety disorder, unspecified; F32.A Depression, unspecified; Z71.6 Tobacco abuse counseling; F17.210 Nicotine dependence, cigarettes, uncomplicated
CPT/HCPCS: 36415; 80053; 80061; 81001; 82962; 83036; 84443; 85007; 85025; G0378